=== PATIENT | female | born 1945 | race Caucasian/White ===

== ENCOUNTER 2017-01-30 13:44 | Outpatient (CLI) | payer MEDICARE ==
[2017-01-30 20:23] LABS: HEMOGLOBIN A1C 0.75 g/dL
== END 2017-01-30 13:45 | disposition home or self-care (01) ==
LOC: LAB.WCP 13:44
PROVIDERS: ATTEND Family Medicine
DX: E11.9 Type 2 diabetes mellitus without complications (principal); E01.0 Iodine-deficiency related diffuse (endemic) goiter
CPT/HCPCS: 36415; 83036; 84443

== ENCOUNTER 2017-04-14 23:40 | Emergency (ER) | payer MEDICARE ==
[2017-04-15] MEDS ORDERED: ALBUTEROL NEB 2.5 MG/3 ML INH STA (00:19)
[2017-04-15 00:26] LABS: BASOPHILS # (AUTO) 0.1 10^3/uL (0.0-0.1); BASOPHILS % (AUTO) 1.9 %; EOSINOPHILS # (AUTO) 0.5 10^3/uL (0.0-0.7); EOSINOPHILS % (AUTO) 6.3 %; HGB - HEMOGLOBIN 13.6 g/dL (12.0-16.0); MEAN CORPUSCULAR HEMOGLOBIN 31.7 pg (27.0-31.0); MEAN CORPUSCULAR VOLUME 93.2 fL (81.0-99.0); MEAN PLATELET VOLUME 7.6 fL (7.9-10.8); MONOCYTES # (AUTO) 0.7 10^3/uL (0.0-1.0); MONOCYTES % (AUTO) 8.7 %; NEUTROPHILS # (AUTO) 4.6 10^3/uL (1.5-6.6); NEUTROPHILS % (AUTO) 58.1 %; NUCLEATED RED BLOOD CELLS AUTO 0.1 /100WBC; RED BLOOD COUNT 4.29 10^6/uL (4.20-5.40); RED CELL DISTRIBUTION WIDTH 13.2 % (12.0-15.0)
[2017-04-15] MEDS ORDERED: ALBUTEROL NEB 2.5 MG/3 ML INH ONE ×2 (00:38→00:53)
[2017-04-15 00:41] LABS: ALBUMIN/GLOBULIN RATIO 1.2 (1.0-2.2); BILIRUBIN,TOTAL 0.4 mg/dL (0.2-1.0); CALCIUM 9.6 mg/dL (8.5-10.3); TOTAL PROTEIN 8.3 g/dL (6.7-8.2)
--- NOTE | 2017-04-15 01:28 | ED Physician Documentation ---
PD HPI DYSPNEA - Stated complaint Stated Complaint: SHORTNESS OF BREATH - Chief complaint Chief Complaint: Resp - History obtained from History obtained from: Patient, Family - History of Present Illness Timing - onset: Yesterday Timing - onset during: Rest, Light activity Timing - details: Gradual onset, Still present Inciting event(s): Exposure (ie smoke) Worsened by: Allergens, Smoke Associated symptoms: Cough, Chest pain / discomfort Similar symptoms before: No diagnosis Recently seen: Not recently seen - Additional information Additional information: Patient is a 72 year old female who is presenting to the emergency department for cough and chest tightness. patient states that over the last few days since there has been smoke in the air she has felt some chest pressure and short of breath. Review of Systems Constitutional: denies: Fever, Chills Eyes: denies: Decreased vision, Photophobia Ears: denies: Ear pain, Drainage/discharge Nose: denies: Congestion, Epistaxis Throat: denies: Sore throat Cardiac: denies: Palpitations, Pedal edema Respiratory: reports: Dyspnea, Cough, Wheezing GI: denies: Nausea, Vomiting : denies: Dysuria, Frequency Skin: denies: Rash, Lesions Musculoskeletal: denies: Neck pain, Back pain, Extremity pain Neurologic: denies: Generalized weakness, Focal weakness, Headache, Head injury Immunocompromised: denies: Immunocompromised PD PAST MEDICAL HISTORY - Past Medical History Past Medical History: Yes Cardiovascular: Hypertension Respiratory: None Neuro: Headache/migraine Endocrine/Autoimmune: Type 2 diabetes GI: Ulcers, Hiatal hernia, Colon polyps, Diverticulitis, Other : None Psych: Anxiety Musculoskeletal: Osteoarthritis, Chronic back pain Derm: Psoriasis - Past Surgical History Past Surgical History: Yes General: Cholecystectomy, Appendectomy, Hiatal hernia repair Ortho: Knee replacement, Spine surgery /[employer]: Hysterectomy HEENT: Tonsil/Adenoidectomy Derm: Skin cancer surgery - Present Medications Home Medications: Ambulatory Orders Medication Instructions Recorded Confirmed Alprazolam [Xanax] 0.5 mg BID PRN 06/22/14 04/15/17 Aspirin 81 mg DAILY 06/22/14 04/15/17 Cyclobenzaprine [Flexeril] 10 mg BID 06/22/14 04/15/17 Indomethacin [Indocin] 50 mg TID PRN 06/22/14 04/15/17 Insulin Glargine,Hum.rec.anlog 40 units BID 06/22/14 04/15/17 [Lantus Solostar] Levothyroxine [Synthroid] 125 mg DAILY 06/22/14 04/15/17 Lisinopril 40 mg DAILY 06/22/14 04/15/17 Simvastatin 20 mg DAILY 06/22/14 04/15/17 metFORMIN [Glucophage] 1,000 mg BID 06/22/14 04/15/17 traMADol [Ultram] 50 mg QID PRN 06/22/14 04/15/17 Hydrocodone/Acetaminophen 1 - 2 each PO Q6H PRN #20 tablet 09/20/15 04/15/17 [Hydrocodon-Acetaminophen 5-325] Ondansetron Odt [Zofran] 4 mg TL Q6H PRN #10 tablet 09/20/15 04/15/17 Albuterol Sulfate [Proventil Hfa 1 - 2 puffs INH Q4H PRN #1 inhaler 04/15/17 Inhaler] - Allergies Allergies/Adverse Reactions: Allergies Allergy/AdvReac Type Severity Reaction Status Date / Time hydromorphone [Hydromorphone] AdvReac Unknown Verified 04/14/17 23:59 iv contrast dye Allergy Rash Uncoded 04/15/17 00:00 - Social History Does the pt smoke?: No Smoking Status: Never smoker Does the pt drink ETOH?: No Does the pt have substance abuse?: No - Immunizations Immunizations are current?: Yes - POLST Patient has POLST: No PD ED PE NORMAL - Vitals Vital signs reviewed: Yes - General General: Alert and oriented X 3, No acute distress - HEENT HEENT: Atraumatic, PERRL, Moist mucous membranes, Pharynx benign - Neck Neck: Supple, no meningeal sign, No JVD - Cardiac Cardiac: RRR, No murmur - Respiratory Respiratory: No respiratory distress, Clear bilaterally - Abdomen Abdomen: Soft, Non tender, Non distended - Derm Derm: Normal color, No rash - Extremities Extremities: No deformity, No calf tenderness / cord - Neuro Neuro: Alert and oriented X 3, No motor deficit, No sensory deficit, Normal speech - Psych Psych: Normal mood, Normal affect Results - Vitals Vitals: Vital Signs - 24 hr 04/14/17 04/15/17 04/15/17 23:57 00:36 00:53 Temperature 36.8 C Heart Rate 92 87 92 Respiratory 19 18 15 Rate Blood Pressure 161/73 H 155/78 H O2 Saturation 96 97 04/15/17 01:11 Temperature Heart Rate 90 Respiratory 90 H Rate Blood Pressure 105/84 H O2 Saturation 95 Oxygen O2 Source Room air - EKG (time done) 0013 Rate: Rate (enter#) (86) Rhythm: NSR [place]: Normal Intervals: Normal VA QRS: Normal Ischemia: Normal ST segments Compare to prior EKG: Old EKG unavailable - Labs Labs: Laboratory Tests 04/15/17 04/15/17 04/15/17 00:09 00:09 00:09 WBC 8.0 RBC 4.29 Hgb 13.6 Hct 40.0 MCV 93.2 MCH 31.7 H MCHC 34.0 RDW 13.2 Plt Count 259 MPV 7.6 L Neut # 4.6 Lymph # 2.0 Nicholas # 0.7 Eos # 0.5 Baso # 0.1 Absolute Nucleated RBC 0.01 Nucleated RBCs 0.1 Sodium 138 Potassium 4.0 Chloride 99 L Carbon Dioxide 29 Anion Gap 10.0 BUN 18 Creatinine 1.0 Estimated GFR (MDRD) 55 L Glucose 219 H Calcium 9.6 Total Bilirubin 0.4 AST 25 ALT 24 Alkaline Phosphatase 45 Troponin I < 0.04 B-Natriuretic Peptide Total Protein 8.3 H Albumin 4.6 Globulin 3.7 Albumin/Globulin Ratio 1.2 Lipase 34 04/15/17 00:09 WBC RBC Hgb Hct MCV MCH MCHC RDW Plt Count MPV Neut # Lymph # Nicholas # Eos # Baso # Absolute Nucleated RBC Nucleated RBCs Sodium Potassium Chloride Carbon Dioxide Anion Gap BUN Creatinine Estimated GFR (MDRD) Glucose Calcium Total Bilirubin AST ALT Alkaline Phosphatase Troponin I B-Natriuretic Peptide 12 Total Protein Albumin Globulin Albumin/Globulin Ratio Lipase - Rads (name of study) chest x-ray Radiology: Final report received (no acute pathology), EMP read contemporaneously PD MEDICAL DECISION MAKING - ED course Complexity details: reviewed old records, reviewed results, re-evaluated patient , considered differential, d/w patient, d/w family ED course: Patient was seen and examined at bedside. ekg was performed and within normal limits. iv access was gained and labs were drawn. Patient was treated with 2 albuterol treatments. Patients diagnostics were within normal limits. Patient required no further work up and was stable for discharge with outpatient follow up. Departure - Departure Disposition: 01 Home, Self Care Clinical Impression: Reactive airway disease that is not asthma Condition: Good Instructions: ED Reactive Airway Disease Follow-Up: Maciel Hay MD [Primary Care Provider] - As Needed Prescriptions: Albuterol Sulfate [Proventil Hfa Inhaler] 1 - 2 puffs INH Q4H PRN #1 inhaler PRN Reason: Shortness Of Air/Wheezing Comments: Your diagnostics today were within normal limits. Your symptoms are likely secondary to the smoke in the air. You should try to avoid being outside or exertion outside if possible. You can use the inhaler ever 2-4 hours as needed if your symptoms persist. You should follow up with your pmd if your symptoms don't improve as the air quality improves. You may return to the emergency department at any time for new, worsening or uncontrollable symptoms.
--- NOTE | 2017-04-15 01:58 | XRAY Preliminary Report ---
Exam: XR Chest 1 View IMPRESSION: Normal single view chest. [facility] SITE ID: [id number]
--- NOTE | 2017-04-15 02:01 | XRAY Report ---
EXAM: CHEST RADIOGRAPHY EXAM DATE: 04/15/2017 12:49 AM. CLINICAL HISTORY: Cough, short of breath. COMPARISON: 06/22/2014 chest x-ray. TECHNIQUE: 1 view. FINDINGS: Lungs/Pleura: No focal opacities evident. No pleural effusion. No pneumothorax. Mediastinum: Within exam limitations, cardiomediastinal contour is normal. Other: None. IMPRESSION: Normal single view chest. [facility] Referring Provider Line: [phone] SITE ID: [id number]
[2017-04-15 02:11] VITALS: BP 120/68
== END 2017-04-15 02:11 | disposition home or self-care (01) ==
LOC: ED 23:40
DX: T59.811A Toxic effect of smoke, accidental (unintentional), initial encounter (principal); J68.3 Other acute and subacute respiratory conditions due to chemicals, gases, fumes and vapors; E11.9 Type 2 diabetes mellitus without complications; Z79.4 Long term (current) use of insulin; Z79.84 Long term (current) use of oral hypoglycemic drugs; I10 Essential (primary) hypertension; M19.90 Unspecified osteoarthritis, unspecified site; Z86.010 Personal history of colon polyps; Z87.11 Personal history of peptic ulcer disease; Z87.19 Personal history of other diseases of the digestive system; Z79.82 Long term (current) use of aspirin
CPT/HCPCS: 36415; 71010; 80053; 83690; 83880; 84484; 85025; 93005; 94640; 99283; 99284; J7613

== ENCOUNTER 2017-07-06 14:30 | Outpatient (CLI) | payer MEDICARE ==
[2017-07-06 19:44] LABS: ALBUMIN/GLOBULIN RATIO 1.2 (1.0-2.2); BILIRUBIN,TOTAL 0.5 mg/dL (0.2-1.0); BUN - BLOOD UREA NITROGEN 24 mg/dL (6-20); CARBON DIOXIDE - CO2 26 mmol/L (21-32); CHLORIDE 102 mmol/L (101-111); CHOL/HDL RATIO 2.6 (<4.4); CHOLESTEROL 114 mg/dL; CREATININE 0.9 mg/dL (0.4-1.0); GFR - MDRD 62 (>89); GLUCOSE 105 mg/dL (70-100); HDL CHOLESTEROL 44 mg/dL; SODIUM 138 mmol/L (135-145); TOTAL PROTEIN 8.2 g/dL (6.7-8.2); TRIGLYCERIDES 121 mg/dL; VLDL CHOLESTEROL 24 mg/dL
[2017-07-06 19:55] LABS: HEMOGLOBIN A1C 0.7 g/dL
== END 2017-07-06 14:31 | disposition home or self-care (01) ==
LOC: LAB.WCP 14:30
PROVIDERS: ATTEND Family Medicine
DX: M51.36 Other intervertebral disc degeneration, lumbar region (principal); E03.9 Hypothyroidism, unspecified; E11.9 Type 2 diabetes mellitus without complications; I10 Essential (primary) hypertension
CPT/HCPCS: 36415; 80053; 80061; 83036

== ENCOUNTER 2017-11-02 08:00 | Outpatient (CLI) | payer MEDICARE ==
[2017-11-02 19:59] LABS: HB2 TOTAL 14.4 g/dL; HEMOGLOBIN A1C 0.71 g/dL; HEMOGLOBIN A1C % 6.7 % (4.6-6.2)
[2017-11-02 20:26] LABS: CREATININE 0.7 mg/dL (0.4-1.0)
== END 2017-11-02 08:01 ==
LOC: LAB.WCP 08:00
PROVIDERS: ATTEND Family Medicine
DX: E11.9 Type 2 diabetes mellitus without complications (principal); I10 Essential (primary) hypertension; E78.5 Hyperlipidemia, unspecified; E87.1 Hypo-osmolality and hyponatremia; E03.9 Hypothyroidism, unspecified
CPT/HCPCS: 36415; 80048; 83036; 84443

== ENCOUNTER 2017-12-23 11:35 | Outpatient (CLI) | payer MEDICARE | END 2017-12-23 11:36 | disposition home or self-care (01) | LOC: DI 11:35 | PROVIDERS: ATTEND Family Medicine | DX: R06.00 Dyspnea, unspecified (principal); E11.9 Type 2 diabetes mellitus without complications; I10 Essential (primary) hypertension | CPT/HCPCS: 93306 ==

== ENCOUNTER 2018-09-01 14:55 | Outpatient (CLI) | payer MEDICARE ==
--- NOTE | 2018-09-02 10:15 | XRAY Report ---
Reason: HEADACHE Procedure Date: 09/01/2018 Accession Number: [id number] / [id number] Procedure: XRN - Skull Complete CPT Code: FULL RESULT: EXAM: SKULL RADIOGRAPHY EXAM DATE: 09/01/2018 03:15 PM. CLINICAL HISTORY: Headache. COMPARISON: None. TECHNIQUE: 2 views. FINDINGS: Bones: Normal. No fractures or bone lesions. Sinuses: Normal. No opacities or fluid levels. Other: Normal. No soft tissue swelling. IMPRESSION: Normal skull radiography. [facility]
== END 2018-09-01 14:56 | disposition home or self-care (01) ==
LOC: DI.N 14:55
PROVIDERS: ATTEND Family Medicine
DX: R51 Headache (principal)
CPT/HCPCS: 70260

== ENCOUNTER 2018-11-25 15:53 | Outpatient (CLI) | payer MEDICARE ==
--- NOTE | 2018-11-25 16:33 | XRAY Report ---
Reason: DYSPNEA ON EXERTION Procedure Date: 11/25/2018 Accession Number: [id number] / [id number] Procedure: WCP - Chest 2 View X-Ray CPT Code: 68341 FULL RESULT: EXAM: CHEST RADIOGRAPHY EXAM DATE: 11/25/2018 04:03 PM. CLINICAL HISTORY: DYSPNEA ON EXERTION. COMPARISON: CHEST 1 VIEW 04/15/2017 12:53 AM. TECHNIQUE: 2 views. FINDINGS: Lungs/Pleura: No focal opacities evident. No pleural effusion. No pneumothorax. Normal volumes. Mediastinum: Heart and mediastinal contours are unremarkable. Other: Status post multilevel lower cervical fusion. Partial visualization of upper lumbar fusion hardware. IMPRESSION: No acute cardiopulmonary abnormality. [facility]
== END 2018-11-25 15:54 | disposition home or self-care (01) ==
LOC: DI.WCP 15:53
PROVIDERS: ATTEND Family Medicine
DX: R06.09 Other forms of dyspnea (principal)
CPT/HCPCS: 71046

== ENCOUNTER 2018-12-03 13:24 | Outpatient (CLI) | payer MEDICARE | END 2018-12-03 13:25 | disposition home or self-care (01) | LOC: DI 13:24 | PROVIDERS: ATTEND Family Medicine | DX: R06.00 Dyspnea, unspecified (principal); I27.20 Pulmonary hypertension, unspecified | CPT/HCPCS: 93306 ==

== ENCOUNTER 2018-12-06 13:14 | Outpatient (CLI) | payer MEDICARE ==
[2018-12-06] MEDS ORDERED: ALBUTEROL NEB 2.5 MG/3 ML INH ONE ×2 (13:28→14:00)
== END 2018-12-06 13:15 | disposition home or self-care (01) ==
LOC: RT 13:14
PROVIDERS: ATTEND Family Medicine
DX: R06.09 Other forms of dyspnea (principal)
CPT/HCPCS: 94010; 94729

== ENCOUNTER 2018-12-23 13:52 | Outpatient (CLI) | payer MEDICARE ==
[~2018-12-23 13:52] MED LIST: IOVERSOL 320 100 ML VIAL IVP ONE
[2018-12-23 14:34] LABS: ALBUMIN 4.5 g/dL (3.2-5.5); ALBUMIN/GLOBULIN RATIO 1.2 (1.0-2.2); BILIRUBIN,TOTAL 0.7 mg/dL (0.2-1.0); CALCIUM 9.3 mg/dL (8.5-10.3); TOTAL PROTEIN 8.3 g/dL (6.7-8.2)
[2018-12-23] MEDS ORDERED: IOVERSOL 320 100 ML VIAL IVP ONE ×2 (17:44)
--- NOTE | 2018-12-24 11:41 | CT Report ---
Reason: DYSPNEA ON EXERTION Procedure Date: 12/23/2018 Accession Number: [id number] / [id number] Procedure: CT - CHEST W CPT Code: FULL RESULT: EXAM: CT CHEST EXAM DATE: 12/23/2018 03:13 PM. CLINICAL HISTORY: Dyspnea on exertion. COMPARISONS: ABDOMEN/PELVIS W/O 09/20/2015 5:44 PM. TECHNIQUE: Routine helical CT imaging was performed through the chest. IV contrast: Yes. Reconstructions: Coronal and sagittal. In accordance with CT protocol optimization, one or more of the following dose reduction techniques were utilized for this exam: automated exposure control, adjustment of mA and/or KV based on patient size, or use of iterative reconstructive technique. FINDINGS: Lungs/Pleura: No nodules, bronchial thickening, consolidation, or edema. Pulmonary vasculature is normal. No pericardial or pleural effusion. No pneumothorax. Mediastinum: Severe coronary calcifications. Heart and aorta otherwise appear unremarkable. No adenopathy. Bones: Previous cervical and lumbar surgeries. No acute or aggressive-appearing osseous abnormality seen. Moderate degenerative changes throughout the thoracic spine. Visualized Abdomen: Fatty liver, prior cholecystectomy. Other: None. IMPRESSION: 1. Severe coronary calcifications. 2. Lungs appear clear. 3. Fatty liver. [facility]
== END 2018-12-23 13:53 | disposition home or self-care (01) ==
LOC: LAB 13:52 → DI 13:53
PROVIDERS: ATTEND Family Medicine
DX: R06.00 Dyspnea, unspecified (principal); I10 Essential (primary) hypertension; I25.10 Atherosclerotic heart disease of native coronary artery without angina pectoris; K76.0 Fatty (change of) liver, not elsewhere classified
CPT/HCPCS: 36415; 71260; 80053; Q9967

== ENCOUNTER 2019-05-27 08:00 | Outpatient (CLI) | payer MEDICARE ==
[2019-05-27 19:01] LABS: CREATININE,URINE 46.5 mg/dL; MICROALBUMIN,URINE 7.3 mg/dL (0-300.0)
[2019-05-27 19:02] LABS: CALCIUM 8.9 mg/dL (8.5-10.3); CREATININE 0.9 mg/dL (0.4-1.0)
[2019-05-27 19:04] LABS: HEMOGLOBIN A1C 1.03 g/dL; HEMOGLOBIN A1C % 8.4 % (4.6-6.2)
== END 2019-05-27 23:59 | disposition home or self-care (01) ==
LOC: LAB.WCP 08:00
PROVIDERS: ATTEND Family Medicine
DX: E11.9 Type 2 diabetes mellitus without complications (principal); E03.9 Hypothyroidism, unspecified
CPT/HCPCS: 36415; 80048; 82043; 82570; 83036; 84443

== ENCOUNTER 2019-06-10 08:00 | Outpatient (CLI) | payer MEDICARE ==
[2019-06-10 20:13] LABS: BASOPHILS # (AUTO) 0.1 10^3/uL (0.0-0.1); EOSINOPHILS # (AUTO) 0.2 10^3/uL (0.0-0.7); EOSINOPHILS % (AUTO) 2.4 %; HGB - HEMOGLOBIN 11.6 g/dL (12.0-16.0); LYMPHOCYTES # (AUTO) 1.5 10^3/uL (1.5-3.5); LYMPHOCYTES % (AUTO) 18.4 %; MEAN CORPUSCULAR HEMOGLOBIN 31.4 pg (27.0-31.0); MEAN CORPUSCULAR HGB CONC 31.8 g/dL (32.0-36.0); MEAN CORPUSCULAR VOLUME 98.9 fL (81.0-99.0); MEAN PLATELET VOLUME 9.6 fL (7.9-10.8); MONOCYTES # (AUTO) 0.6 10^3/uL (0.0-1.0); MONOCYTES % (AUTO) 6.9 %; NEUTROPHILS # (AUTO) 5.9 10^3/uL (1.5-6.6); NEUTROPHILS % (AUTO) 70.7 %; PLT - PLATELET COUNT 319 10^3/uL (130-450); RED BLOOD COUNT 3.69 10^6/uL (4.20-5.40); RED CELL DISTRIBUTION WIDTH 12.6 % (12.0-15.0); WHITE BLOOD COUNT 8.4 x10^3/uL (4.8-10.8)
[2019-06-10 20:31] LABS: ALBUMIN 3.9 g/dL (3.2-5.5); ALBUMIN/GLOBULIN RATIO 1.1 (1.0-2.2); BILIRUBIN,TOTAL 0.7 mg/dL (0.2-1.0); CALCIUM 9.1 mg/dL (8.5-10.3); CREATININE 0.9 mg/dL (0.4-1.0); TOTAL PROTEIN 7.3 g/dL (6.7-8.2)
== END 2019-06-10 23:59 | disposition home or self-care (01) ==
LOC: LAB.WCP 08:00
PROVIDERS: ATTEND Physician Assistant
DX: N39.0 Urinary tract infection, site not specified (principal)
CPT/HCPCS: 36415; 80053; 85025

== ENCOUNTER 2019-06-24 12:59 | Outpatient (CLI) | payer MEDICARE ==
--- NOTE | 2019-06-25 16:26 | CT Report ---
Reason: URETERAL CALCULUS Procedure Date: 06/24/2019 Accession Number: [id number] / [id number] Procedure: CT - Abdomen/Pelvis WO CPT Code: Final Report FULL RESULT: EXAM: CT ABDOMEN AND PELVIS (CT KUB) EXAM DATE: 06/24/2019 01:08 PM. CLINICAL HISTORY: URETERAL CALCULUS. COMPARISONS: ABDOMEN/PELVIS W/O 09/20/2015 5:44 PM. TECHNIQUE: Routine axial helical CT imaging was performed through the abdomen and pelvis without IV contrast. Reconstructions: Coronal and sagittal. In accordance with CT protocol optimization, one or more of the following dose reduction techniques were utilized for this exam: automated exposure control, adjustment of mA and/or KV based on patient size, or use of iterative reconstructive technique. FINDINGS: Lung Bases: Unremarkable. Right Kidney/Ureter: No stones, hydronephrosis, or hydroureter. No perinephric fat stranding. Left Kidney/Ureter: No stones, hydronephrosis, or hydroureter. No perinephric fat stranding. Left ureteral stent extends from the renal pelvis to the bladder. No perinephric or periureteral fluid collections. Other Solid Organs: Noncontrast images of the solid organs are grossly unremarkable. Gallbladder/Bile Ducts: Cholecystectomy. Peritoneal Cavity: No free fluid, free air or grace adenopathy. Extensive colonic diverticulosis without evidence for acute diverticulitis. Pelvic Organs: No bladder stones or wall thickening. Status post hysterectomy. Vasculature: Moderate atherosclerotic calcifications of the abdominal aorta Other: Surgical fixation of the lumbosacral spine. IMPRESSION: 1. No urinary tract stones or obstruction. Left ureteral stent without evidence of perinephric or periureteral fluid collections. 2. Moderate stool throughout colon, constipation. [facility]
== END 2019-06-24 13:00 | disposition home or self-care (01) ==
LOC: DI 12:59
PROVIDERS: ATTEND Urology
DX: N20.1 Calculus of ureter (principal)
CPT/HCPCS: 74176

== ENCOUNTER 2019-06-27 08:20 | Outpatient (CLI) | payer MEDICARE ==
[2019-06-27 13:00] LABS: HGB - HEMOGLOBIN 12.3 g/dL (12.0-16.0); MEAN CORPUSCULAR HEMOGLOBIN 31.6 pg (27.0-31.0); MEAN CORPUSCULAR HGB CONC 32.2 g/dL (32.0-36.0); MEAN CORPUSCULAR VOLUME 98.2 fL (81.0-99.0); RED BLOOD COUNT 3.89 10^6/uL (4.20-5.40); WHITE BLOOD COUNT 6.4 x10^3/uL (4.8-10.8)
== END 2019-06-27 23:59 | disposition home or self-care (01) ==
LOC: LAB.WCP 08:20
PROVIDERS: ATTEND Physician Assistant
DX: G44.1 Vascular headache, not elsewhere classified (principal)
CPT/HCPCS: 36415; 85027; 85651; 86140

== ENCOUNTER 2019-07-08 10:59 | Outpatient (CLI) | payer MEDICARE ==
[2019-07-08 12:01] LABS: BASOPHILS # (AUTO) 0.1 10^3/uL (0.0-0.1); EOSINOPHILS # (AUTO) 0.4 10^3/uL (0.0-0.7); EOSINOPHILS % (AUTO) 5.8 %; HGB - HEMOGLOBIN 11.8 g/dL (12.0-16.0); LYMPHOCYTES % (AUTO) 30.1 %; MEAN CORPUSCULAR HEMOGLOBIN 31.3 pg (27.0-31.0); MEAN CORPUSCULAR HGB CONC 31.9 g/dL (32.0-36.0); MEAN CORPUSCULAR VOLUME 98.1 fL (81.0-99.0); MEAN PLATELET VOLUME 8.9 fL (7.9-10.8); MONOCYTES # (AUTO) 0.8 10^3/uL (0.0-1.0); MONOCYTES % (AUTO) 11.1 %; NEUTROPHILS # (AUTO) 3.5 10^3/uL (1.5-6.6); NEUTROPHILS % (AUTO) 51.7 %; PLT - PLATELET COUNT 250 10^3/uL (130-450); RED BLOOD COUNT 3.77 10^6/uL (4.20-5.40); RED CELL DISTRIBUTION WIDTH 13.2 % (12.0-15.0); WHITE BLOOD COUNT 6.8 x10^3/uL (4.8-10.8)
[2019-07-08 12:10] LABS: CALCIUM 8.9 mg/dL (8.5-10.3)
--- NOTE | 2019-07-08 14:27 | XRAY Report ---
Reason: CYSTOSCOPY,LT URETEROSCOPY Procedure Date: 07/08/2019 Accession Number: [id number] / [id number] Procedure: XR - Chest 2 View X-Ray CPT Code: 08255 Final Report FULL RESULT: EXAM: CHEST RADIOGRAPHY, 2 VIEWS EXAM DATE: 07/08/2019 11:30 AM. CLINICAL HISTORY: 78-year-old female with cystoscopy and left ureteroscopy. COMPARISON: CHEST 2 VIEW 11/25/2018 3:49 PM. CHEST W/ 12/23/2018 3:13 PM. CHEST 1 VIEW 04/15/2017 12:53 AM. CHEST 2 VIEW PA/LAT 06/22/2014 6:40 PM. TECHNIQUE: Upright PA and lateral views. FINDINGS: Lungs/Pleura: No focal opacities evident. No pleural effusion. No pneumothorax. Normal volumes. Mediastinum: Heart size normal, without adenopathy or pulmonary vascular congestion. Other: Postsurgical changes lower cervical spine and mid lumbar spine, as previously. No acute process or metastatic disease. IMPRESSION: Stable chest. No pneumonia, CHF or other demonstrated cause for the patient's symptoms. [facility]
== END 2019-07-08 11:00 | disposition home or self-care (01) ==
LOC: DI 10:59
PROVIDERS: ATTEND Urology
DX: Z01.818 Encounter for other preprocedural examination (principal); N20.1 Calculus of ureter; N13.30 Unspecified hydronephrosis
CPT/HCPCS: 36415; 71046; 80048; 85025; 93005

== ENCOUNTER 2019-07-11 11:12 | Day surgery (SDC) | payer MEDICARE ==
[~2019-07-11 11:12] MED LIST changes: +IOTHALAMATE MEGLUMINE 50 ML VIAL ONE; -IOVERSOL 320 100 ML VIAL IVP ONE; +LIDOCAINE 2% URO-JET 5 ML SYRINGE UR ONE
[2019-07-11] MEDS ORDERED: MIDAZOLAM 2 MG/2 ML VIAL IVP ONE (11:13)
[2019-07-11] MEDS ORDERED: fentaNYL 100 MCG/2 ML VIAL IVP ONE (11:13)
[2019-07-11] MEDS ORDERED: PROPOFOL 200 MG/20 ML VIAL IVP ONE (11:13)
[2019-07-11] MEDS ORDERED: ROCURONIUM 50 MG/5 ML VIAL IVP ONE (11:13)
[2019-07-11] MEDS ORDERED: PHENYLEPHRINE 10 MG/ML VIAL IV ONE (11:13)
[2019-07-11] MEDS ORDERED: cefTRIAXone 2 GM VIAL ONE (11:23)
[2019-07-11] MEDS ORDERED: LACTATED RINGERS 1,000 ML IV ONE ×3 (11:26→16:28)
--- NOTE | 2019-07-11 12:37 | ANESTHESIA ---
Pre-Anesthesia VS, & Labs - Diagnosis left ureteral stone, left hydronephrosis - Procedure cystoscopy, left ureteroscopy, laser lithotripsy, left stent removal, left stent placement Vital Signs: Temp Pulse Resp BP Pulse Ox 36.7 C 103 H 14 173/78 H 93 07/11/19 11:26 12 11:26 07/11/19 11:26 07/11/19 11:26 07/11/19 11:26 Height 5 ft 8 in Weight (kg) 130.9 kg Body Mass Index 39.1 - NPO >8 hours - Is Patient ?: No - Lab Results Current Lab Results: Laboratory Tests 07/11/19 12:25: POC Whole Bld Glucose 179 H Home Medications and Allergies Home Medications: Ambulatory Orders Atorvastatin Calcium 40 mg PO DAILY 07/06/19 Ciprofloxacin HCl [Cipro] 500 mg PO BID 07/11/19 Tamsulosin HCl [Flomax] 0.4 mg PO DAILY 07/11/19 Alprazolam [Xanax] 0.5 mg BID PRN 06/22/14 Aspirin 81 mg DAILY 06/22/14 Cyclobenzaprine [Flexeril] 10 mg PO BID 06/22/14 Indomethacin [Indocin] 50 mg TID PRN 06/22/14 Insulin Glargine,Hum.rec.anlog [Lantus Solostar] 30 units TID 06/22/14 Levothyroxine [Synthroid] 125 mg PO DAILY 06/22/14 Lisinopril 40 mg PO DAILY 06/22/14 metFORMIN [Glucophage] 1,000 mg BID 06/22/14 traMADol [Ultram] 50 mg QID PRN 06/22/14 Atorvastatin Calcium 40 mg PO DAILY 07/06/19 Ciprofloxacin HCl [Cipro] 500 mg PO BID 07/11/19 Tamsulosin HCl [Flomax] 0.4 mg PO DAILY 07/11/19 Allergies/Adverse Reactions: Allergies Allergy/AdvReac Type Severity Reaction Status Date / Time Iodinated Contrast Media Allergy Mild Rash Verified 07/11/19 11:57 hydromorphone [Hydromorphone] AdvReac Unknown Verified 04/14/17 23:59 Anes History & Medical History - Anesthetic History Anesthesia Complications: reports: No previous complications - Medical History Cardiovascular: reports: None Pulmonary: reports: Shortness of breath Gastrointestinal: reports: Ulcers, Chronic diarrhea, Chronic constipation Urinary: reports: Chronic bladder infection, Kidney stones Neuro: reports: None Musculoskeletal: reports: Osteoarthritis, Chronic back pain Endocrine/Autoimmune: reports: Type 2 diabetes, HyPOthyroidism Blood Disorders: reports: None Smoking Status: Former smoker (quit 18 years ago) Psychosocial: reports: No issues indicated - Surgical History General: Cholecystectomy, Appendectomy, Hiatal hernia repair Eyes Ears Nose Throat (EENT): Tonsil/Adenoidectomy Gynecologic: Hysterectomy Orthopedic: Knee replacement, Spine surgery Dermatologic: Skin cancer surgery Results - EKG Results EKG Comparison: Reviewed EKG - Echo Results Echo Results: Report reviewed Exam General: Alert, Oriented x3, Cooperative, No acute distress Dental: WNL Mouth Openin Fingerbreadth Neck Mobility: Reduced (s/p acdf) Mallampati classification: II Thyromental Distance: 4-6 cm Respiratory: Decreased breath sounds, Wheezing (expiratory wheezing) Cardiovascular: Regular rate, Normal S1, Normal S2 Mental/Cognitive Status: Alert/Oriented X3, Normal for patient Plan Anesthesia Type: General Consent for Procedure(s) Verified and Reviewed: Yes Code Status: Attempt Resuscitation ASA classification: 3-Severe systemic disease Is this case an emergency?: No
[2019-07-11] MEDS ORDERED: IPRATROPIUM/ALBUTEROL 3 ML NEB INH PRN (12:45)
[2019-07-11] MEDS ORDERED: SUGAMMADEX 200 MG/2 ML VIAL IVP ONE (14:56)
[2019-07-11] MEDS ORDERED: IOTHALAMATE MEGLUMINE 50 ML VIAL INTRADUCT ONE ×2 (15:54)
--- NOTE | 2019-07-11 16:36 | IMMEDIATE POSTOPERATIVE NOTE ---
Immediate Postoperative Note - Procedure Note Procedure Date: 07/11/19 Pre-Op Diagnosis: L ureteral calculus Procedure: see below Post-Op Diagnosis: L ureteral calculus Primary Surgeon: Rayo Pablo MD Dough Machine Operator: None Anesthesia Type: Other (General) Findings: Procedure: Cystoscopy, L ureteroscopy, basket extraction of L ureteral calculus, L retrograde pyelogram, L ureteral stent removal, and L ureteral stent placement Findings: Cystoscopy revealed no bladder tumors or calculi, B/L ureteral orifices in normal position, and distal end of L ureteral stent seen emerging from L ureteral orifice. Old L ureteral stent was removed. L semi-rigid ureteroscopy revealed no calculi in L distal or L mid ureter and an approx. 5- 6mm calculus in L proximal ureter. Basket extraction of calculus was attempted but was unable to be performed. L flexible ureteroscopy revealed the L proximal ureteral calculus. Basket extraction of L ureteral calculus was able to be performed. L retrograde pyelogram revealed no L hydronephrosis. New L ureteral stent was placed. Complications: No complications Estimated Blood Loss (in cc): 2 Specimens and Cultures: Specimens: L ureteral calculus sent to lab for stone analysis Drains: 28cm x 6F L ureteral JJ stent (no string) Plan of Care: Patient to be discharged home when stable and to return to see me in the office in 1 week for cystoscopy, stent removal, and post-op visit.
[2019-07-11] MEDS ORDERED: ONDANSETRON 4 MG/2 ML VIAL IVP PRN (16:53)
[2019-07-11] MEDS ORDERED: HYDROcod/ACETAM 10 MG/325 MG TABLET PO PRN (16:53)
[2019-07-11 17:03] VITALS: BP 162/62
--- NOTE | 2019-07-15 06:12 | XRAY Report ---
Reason: STENT PLACEMENT Procedure Date: 07/11/2019 Accession Number: [id number] / [id number] Procedure: FL - OR C-Arm Procedure CPT Code: Final Report FULL RESULT: EXAM: FLUOROSCOPIC GUIDANCE EXAM DATE: 07/11/2019 04:45 PM. CLINICAL HISTORY: STENT PLACEMENT. COMPARISON: None. FINDINGS: Intraoperative matrix images demonstrate placement of a left ureteral stent. IMPRESSION: Fluoroscopic guidance provided for left ureteral stent placement. Total fluoroscopy time: 0.4 minutes. Number of images: 5. ETHAN
== END 2019-07-11 11:13 | disposition home or self-care (01) ==
LOC: SDS 11:12
PROVIDERS: ATTEND Urology
PROC: 0TC78ZZ Extirpation of Matter from Left Ureter, Via Natural or Artificial Opening Endoscopic (ICD-10-PCS; principal; 2019-07-11 13:00)
PROC: 0T9780Z Drainage of Left Ureter with Drainage Device, Via Natural or Artificial Opening Endoscopic (ICD-10-PCS; 2019-07-11 13:00)
DX: N20.1 Calculus of ureter (principal); E11.9 Type 2 diabetes mellitus without complications; E03.9 Hypothyroidism, unspecified; I10 Essential (primary) hypertension; G47.30 Sleep apnea, unspecified; E66.9 Obesity, unspecified; Z68.39 Body mass index [BMI] 39.0-39.9, adult; E78.5 Hyperlipidemia, unspecified; G89.29 Other chronic pain; M54.9 Dorsalgia, unspecified; Z79.4 Long term (current) use of insulin; Z79.891 Long term (current) use of opiate analgesic; Z79.82 Long term (current) use of aspirin; Z87.440 Personal history of urinary (tract) infections; Z87.891 Personal history of nicotine dependence; Z85.828 Personal history of other malignant neoplasm of skin; Z96.659 Presence of unspecified artificial knee joint
CPT/HCPCS: 52332; 52352; 94640; C1758; J7120; Q9961

== ENCOUNTER 2019-08-17 07:00 | Outpatient (CLI) | payer MEDICARE ==
[2019-08-17 18:26] LABS: HB2 TOTAL 13.6 g/dL; HEMOGLOBIN A1C 0.91 g/dL; HEMOGLOBIN A1C % 8.3 % (4.6-6.2)
[2019-08-17 18:28] LABS: ALBUMIN 4.2 g/dL (3.2-5.5); ALBUMIN/GLOBULIN RATIO 1.2 (1.0-2.2); BILIRUBIN,TOTAL 0.7 mg/dL (0.2-1.0); CALCIUM 9.4 mg/dL (8.5-10.3); CREATININE 0.9 mg/dL (0.4-1.0); TOTAL PROTEIN 7.7 g/dL (6.7-8.2)
== END 2019-08-17 23:59 | disposition home or self-care (01) ==
LOC: LAB.WCP 07:00
PROVIDERS: ATTEND Physician Assistant
DX: E11.9 Type 2 diabetes mellitus without complications (principal); N20.0 Calculus of kidney; E03.9 Hypothyroidism, unspecified
CPT/HCPCS: 36415; 80053; 83036; 84443; 85025

== ENCOUNTER 2020-06-13 08:00 | Outpatient (CLI) | payer MEDICARE ==
[2020-06-13 18:35] LABS: BASOPHILS # (AUTO) 0.1 10^3/uL (0.0-0.1); BASOPHILS % (AUTO) 1.6 %; EOSINOPHILS # (AUTO) 0.3 10^3/uL (0.0-0.7); EOSINOPHILS % (AUTO) 3.9 %; HGB - HEMOGLOBIN 12.8 g/dL (12.0-16.0); MEAN CORPUSCULAR HGB CONC 32.1 g/dL (32.0-36.0); MEAN CORPUSCULAR VOLUME 99.8 fL (81.0-99.0); MEAN PLATELET VOLUME 10.2 fL (7.9-10.8); MONOCYTES # (AUTO) 0.6 10^3/uL (0.0-1.0); MONOCYTES % (AUTO) 9.4 %; NEUTROPHILS # (AUTO) 3.8 10^3/uL (1.5-6.6); NEUTROPHILS % (AUTO) 55.7 %; PLT - PLATELET COUNT 276 10^3/uL (130-450); RED CELL DISTRIBUTION WIDTH 12.7 % (12.0-15.0); WHITE BLOOD COUNT 6.7 x10^3/uL (4.8-10.8)
[2020-06-13 18:59] LABS: ALBUMIN 4.3 g/dL (3.2-5.5); ALBUMIN/GLOBULIN RATIO 1.2 (1.0-2.2); ALKALINE PHOSPHATASE 48 IU/L (42-121); ALT ALANINE AMINOTRANSFERASE 31 IU/L (10-60); AST ASPARTATE AMINOTRANSFERASE 25 IU/L (10-42); BILIRUBIN,TOTAL 0.8 mg/dL (0.2-1.0); BUN - BLOOD UREA NITROGEN 30 mg/dL (6-20); CALCIUM 9.2 mg/dL (8.5-10.3); CARBON DIOXIDE - CO2 30 mmol/L (21-32); CHLORIDE 102 mmol/L (101-111); CHOL/HDL RATIO 2.4 (<4.4); CHOLESTEROL 103 mg/dL; GLUCOSE 116 mg/dL (70-100); HDL CHOLESTEROL 43 mg/dL; LDL CHOLESTEROL,CALCULATED 48 mg/dL; LDL/HDL RATIO 1.1 (<4.4); SODIUM 141 mmol/L (135-145); TOTAL PROTEIN 7.8 g/dL (6.7-8.2); VLDL CHOLESTEROL 12 mg/dL
== END 2020-06-13 23:59 | disposition home or self-care (01) ==
LOC: LAB.WCP 08:00
PROVIDERS: ATTEND Physician Assistant
DX: E03.9 Hypothyroidism, unspecified (principal); E11.9 Type 2 diabetes mellitus without complications; I10 Essential (primary) hypertension; E78.5 Hyperlipidemia, unspecified
CPT/HCPCS: 36415; 80053; 80061; 83036; 83721; 84443; 85025

== ENCOUNTER 2020-10-08 08:00 | Outpatient (CLI) | payer MEDICARE ==
[2020-10-08 12:41] LABS: CREATININE,URINE 70.9 mg/dL; MICROALBUM/CREATININE RATIO,UR 11.3 ug/mg (<30.0); MICROALBUMIN,URINE 0.8 mg/dL (0-300.0)
[2020-10-08 12:48] LABS: ESTIMATED AVERAGE GLUCOSE 166 mg/dL (70-100); HEMOGLOBIN A1c% 7.4 % (4.27-6.07)
[2020-10-08 13:01] LABS: CALCIUM 9.1 mg/dL (8.5-10.3); CREATININE 1.1 mg/dL (0.4-1.0); POTASSIUM 4.5 mmol/L (3.5-5.0)
[2020-10-08 13:03] LABS: THYROID STIMULATING HORMONE 1.7 uIU/mL (0.34-5.60)
== END 2020-10-08 23:59 | disposition home or self-care (01) ==
LOC: LAB.WCP 08:00
PROVIDERS: ATTEND Physician Assistant Medical
DX: E11.9 Type 2 diabetes mellitus without complications (principal); D64.9 Anemia, unspecified; E03.9 Hypothyroidism, unspecified
CPT/HCPCS: 36415; 80048; 82043; 82570; 82607; 82728; 83036; 83540; 84443; 84466

== ENCOUNTER 2020-10-25 15:07 | Outpatient (CLI) | payer MEDICARE ==
--- NOTE | 2020-10-25 16:45 | DEXA Report ---
PROCEDURE: Dexa Spine and/or Hip INDICATIONS: POST MENOPAUSAL TECHNIQUE: Dual energy x-ray absorptiometry (DXA) was performed on a [employer] System. Regions measur ed are the AP Spine, femoral neck, and if needed forearm. COMPARISON: None. FINDINGS: Lumbar Spine: Bone Mineral Density 1.570 g/cm/cm,T score 3.2, normal Left Hip: Bone Mineral Density 0.988 g/cm/cm,T score -0.2, normal Left Femoral Neck: Bone Mineral Density 1.010 g/cm/cm, T score -0.2, normal Left forearm: Bone Mineral Density 0.679 g/cm/cm, T score 0.1, normal (T score greater or equal to -1.0: NORMAL) (T score from -1.1 to -2.4: OSTEOPENIA) (T score less than or equal to -2.5 to: OSTEOPOROSIS) Impression: Normal bone mineral density. Patients with diagnosis of osteoporosis or osteopenia should have regular bone mineral density assess ment. For those eligible for Medicare, routine testing is allowed once every 2 years. Testing frequ ency can be increased for patients who have rapidly progressing disease or for those who are receivin g medical therapy to restore bone mass. Reviewed by: Natacha Fu MD on 10/25/2020 4:43 PM PDT Approved by: Natacha Fu MD on 10/25/2020 4:43 PM PDT Station ID: [id number]
== END 2020-10-25 15:08 | disposition home or self-care (01) ==
LOC: DI 15:07
PROVIDERS: ATTEND Physician Assistant Medical
DX: Z78.0 Asymptomatic menopausal state (principal)

== ENCOUNTER 2020-12-18 10:22 | Outpatient (CLI) | payer MEDICARE ==
--- NOTE | 2020-12-20 08:30 | Mammography Report ---
BILATERAL DIGITAL DIAGNOSTIC MAMMOGRAM 3D/2D: 12/18/2020 CLINICAL: Focal right breast pain. Comparison is made to exams dated: 08/31/2018 mammogram - [facility], 05/13/2016 mammogram, 2014 mammogram, 09/20/[address] mamm[address] - [facility], 07/21/2011 mammogram, and 3 mammogram - [facility]. There are scattered fibroglandular elements in both [place] sts. No significant masses, calcifications, or other findings are seen in either breast. IMPRESSION: INCOMPLETE: NEEDS ADDITIONAL IMAGING EVALUATION There is no abnormality seen in the right breast to correspond with the pain at 8 o'clock, however, u ltrasound is recommended. Ultrasound will be performed immediately following the current exam. This exam was interpreted at Station ID: [id number]. NOTE: For mammograms, a report in lay terms will be sent to the patient. Approximately 15% of breast malignancies will not be visualized mammographically. In the management of a palpable breast mass, a negative mammogram must not discourage biopsy of a clinically suspicious lesion. Electronically Signed By: Johnny Brewer M.D. ddp/:12/18/2020 12:20:35 copy to: Shruthi Fenton ACR BI-RADS Category 0: Incomplete 3340F PARENCHYMAL PATTERN: (A) - The breast(s) demonstrate(s) scattered fibroglandular densities. BI-RADS CATEGORY: (0) - 0 Ultrasound [id number] Immediate follow-up LATERALITY: (B)
--- NOTE | 2020-12-20 08:30 | Ultrasound Report ---
LIMITED ULTRASOUND OF RIGHT BREAST: 12/18/2020 CLINICAL: Focal right breast pain. Comparison is made to exams dated: 12/18/2020 mammogram - [facility], 08/31/2018 [facility] [place], 05/13/2016 mammogram, 09/28/2014 mammogram, 09/20/2013 mammogram - [facility], and 08/16/2012 mammogram - [facility]. Ultrasound of the right breast 8 o'clock region was performed on the area of interest. Maurice scale im ages of the real-time examination were reviewed. No discrete cystic or solid mass lesion identified in the area of focal pain. IMPRESSION: NEGATIVE There is no sonographic evidence of malignancy. There is no abnormality seen in the right breast to correspond with the pain at 8 o'clock, however, c linical followup is recommended. A 1 year screening mammogram is recommended. This exam was interpreted at Station ID: [id number]. Electronically Signed By: Johnny Brewer M.D. ddp/:12/18/2020 12:20:01 copy to: Shruthi Fenton Ultrasound BI-RADS: 1 Negative BI-RADS CATEGORY: (1) - 1 RECOMMENDATION: (ANNUAL) - Recommend routine annual screening mammography. [id number] 1 year screening LATERALITY: (B)
== END 2020-12-18 10:23 | disposition home or self-care (01) ==
LOC: DI 10:22
PROVIDERS: ATTEND Physician Assistant Medical
DX: R92.8 Other abnormal and inconclusive findings on diagnostic imaging of breast (principal)

== ENCOUNTER 2021-01-01 08:00 | Outpatient (CLI) | payer MEDICARE ==
[2021-01-01 12:15] LABS: BASOPHILS # (AUTO) 0.1 10^3/uL (0.0-0.1); EOSINOPHILS # (AUTO) 0.4 10^3/uL (0.0-0.7); EOSINOPHILS % (AUTO) 5.6 %; HCT - HEMATOCRIT 43.2 % (37.0-47.0); HGB - HEMOGLOBIN 13.6 g/dL (12.0-16.0); LYMPHOCYTES # (AUTO) 1.5 10^3/uL (1.5-3.5); LYMPHOCYTES % (AUTO) 19.1 %; MEAN CORPUSCULAR HGB CONC 31.5 g/dL (32.0-36.0); MEAN CORPUSCULAR VOLUME 98.4 fL (81.0-99.0); MEAN PLATELET VOLUME 10.3 fL (7.9-10.8); MONOCYTES # (AUTO) 0.6 10^3/uL (0.0-1.0); NEUTROPHILS # (AUTO) 5.3 10^3/uL (1.5-6.6); PLT - PLATELET COUNT 269 10^3/uL (130-450); RED BLOOD COUNT 4.39 10^6/uL (4.20-5.40); WHITE BLOOD COUNT 7.9 x10^3/uL (4.8-10.8)
[2021-01-01 12:36] LABS: ALBUMIN 4.4 g/dL (3.2-5.5); ALBUMIN/GLOBULIN RATIO 1.3 (1.0-2.2); ALKALINE PHOSPHATASE 53 IU/L (42-121); ALT ALANINE AMINOTRANSFERASE 30 IU/L (10-60); AST ASPARTATE AMINOTRANSFERASE 26 IU/L (10-42); BILIRUBIN,TOTAL 0.7 mg/dL (0.2-1.0); BUN - BLOOD UREA NITROGEN 37 mg/dL (6-20); CARBON DIOXIDE - CO2 25 mmol/L (21-32); CHLORIDE 103 mmol/L (101-111); CHOL/HDL RATIO 2.6 (<4.4); CHOLESTEROL 100 mg/dL; CREATININE 1.3 mg/dL (0.4-1.0); GFR - MDRD 40 (>89); GLUCOSE 179 mg/dL (70-100); HDL CHOLESTEROL 38 mg/dL; LDL CHOLESTEROL,CALCULATED 47 mg/dL; LDL/HDL RATIO 1.2 (<4.4); POTASSIUM 4.1 mmol/L (3.5-5.0); SODIUM 140 mmol/L (135-145); TOTAL PROTEIN 7.7 g/dL (6.7-8.2); TRIGLYCERIDES 73 mg/dL; VLDL CHOLESTEROL 15 mg/dL
[2021-01-01 12:43] LABS: THYROID STIMULATING HORMONE 1.35 uIU/mL (0.34-5.60)
[2021-01-01 13:15] LABS: ESTIMATED AVERAGE GLUCOSE 180 mg/dL (70-100); HEMOGLOBIN A1c% 7.9 % (4.27-6.07)
== END 2021-01-01 23:59 | disposition home or self-care (01) ==
LOC: LAB.WCP 08:00
PROVIDERS: ATTEND Physician Assistant Medical
DX: E11.9 Type 2 diabetes mellitus without complications (principal); E03.9 Hypothyroidism, unspecified
CPT/HCPCS: 36415; 80053; 80061; 83036; 83721; 84443; 85025

== ENCOUNTER 2021-04-04 08:00 | Outpatient (CLI) | payer MEDICARE ==
[2021-04-04 18:24] LABS: CALCIUM 9.1 mg/dL (8.5-10.3); CREATININE 1.2 mg/dL (0.4-1.0); POTASSIUM 4.2 mmol/L (3.5-5.0)
[2021-04-04 20:42] LABS: ESTIMATED AVERAGE GLUCOSE 183 mg/dL (70-100)
== END 2021-04-04 23:59 | disposition home or self-care (01) ==
LOC: LAB.WCP 08:00
PROVIDERS: ATTEND Physician Assistant Medical
DX: E11.9 Type 2 diabetes mellitus without complications (principal)
CPT/HCPCS: 36415; 80048; 83036

== ENCOUNTER 2021-04-10 16:15 | Outpatient (CLI) | payer MEDICARE | END 2021-04-10 23:59 | disposition home or self-care (01) | LOC: LAB.WCP 16:15 | PROVIDERS: ATTEND Physician Assistant Medical | DX: N39.0 Urinary tract infection, site not specified (principal) | CPT/HCPCS: 87077; 87086; 87181 ==

== ENCOUNTER 2021-07-02 09:04 | Outpatient (CLI) | payer MEDICARE ==
[2021-07-02 12:40] LABS: ESTIMATED AVERAGE GLUCOSE 177 mg/dL (70-100); HEMOGLOBIN A1c% 7.8 % (4.27-6.07)
[2021-07-02 12:50] LABS: BILIRUBIN,URINE NEGATIVE (NEGATIVE); GLUCOSE, URINE (UA) >=1000 mg/dL (NEGATIVE); KETONES,URINE (UA) NEGATIVE (NEGATIVE); LEUKOCYTE ESTERASE, URINE NEGATIVE (NEGATIVE); NITRITE,URINE NEGATIVE (NEGATIVE); OCCULT BLOOD,URINE NEGATIVE (NEGATIVE); PROTEIN,URINE NEGATIVE (NEGATIVE); UROBILINOGEN,URINE 0.2 (NORMAL) E.U./dL (NORMAL)
[2021-07-02 12:57] LABS: CLARITY,URINE CLEAR (CLEAR)
[2021-07-02 13:10] LABS: ALBUMIN 4.4 g/dL (3.2-5.5); ALBUMIN/GLOBULIN RATIO 1.3 (1.0-2.2); ALKALINE PHOSPHATASE 74 IU/L (42-121); ALT ALANINE AMINOTRANSFERASE 57 IU/L (10-60); AST ASPARTATE AMINOTRANSFERASE 42 IU/L (10-42); BILIRUBIN,TOTAL 0.7 mg/dL (0.2-1.0); BUN - BLOOD UREA NITROGEN 19 mg/dL (6-20); CALCIUM 9.4 mg/dL (8.5-10.3); CARBON DIOXIDE - CO2 30 mmol/L (21-32); CHLORIDE 100 mmol/L (101-111); CHOL/HDL RATIO 2.3 (<4.4); CHOLESTEROL 107 mg/dL; GFR - MDRD 54 (>89); GLUCOSE 101 mg/dL (70-100); HDL CHOLESTEROL 46 mg/dL; LDL CHOLESTEROL,CALCULATED 46 mg/dL; POTASSIUM 4.2 mmol/L (3.5-5.0); SODIUM 140 mmol/L (135-145); TOTAL PROTEIN 7.8 g/dL (6.7-8.2); TRIGLYCERIDES 75 mg/dL; VLDL CHOLESTEROL 15 mg/dL
[2021-07-02 13:11] LABS: THYROID STIMULATING HORMONE 3.09 uIU/mL (0.34-5.60)
[2021-07-02 13:17] LABS: BACTERIA,URINE Rare /HPF (None Seen); RBC,URINE 0-5 /HPF (0-5); SQUAMOUS EPITHELIAL CELL,UR FEW Squamous (<= Few); WBC,URINE 0-3 /HPF (0-5)
== END 2021-07-02 23:59 | disposition home or self-care (01) ==
LOC: LAB.WCP 09:04
PROVIDERS: ATTEND Physician Assistant Medical
DX: E11.9 Type 2 diabetes mellitus without complications (principal); N39.0 Urinary tract infection, site not specified; E03.9 Hypothyroidism, unspecified
CPT/HCPCS: 36415; 80053; 80061; 81001; 83036; 83721; 84443; 87086

== ENCOUNTER 2021-10-04 10:33 | Outpatient (CLI) | payer MEDICARE ==
[2021-10-04 18:17] LABS: ESTIMATED AVERAGE GLUCOSE 183 mg/dL (70-100)
[2021-10-04 18:18] LABS: CALCIUM 8.8 mg/dL (8.5-10.3); CREATININE 1.2 mg/dL (0.4-1.0); POTASSIUM 4.8 mmol/L (3.5-5.0)
== END 2021-10-04 10:34 | disposition home or self-care (01) ==
LOC: LAB.N 10:33
PROVIDERS: ATTEND Physician Assistant Medical
DX: E11.9 Type 2 diabetes mellitus without complications (principal)
CPT/HCPCS: 36415; 80048; 83036

== ENCOUNTER 2021-10-10 13:35 | Outpatient (CLI) | payer MEDICARE ==
--- NOTE | 2021-10-10 14:39 | CT Report ---
PROCEDURE: Abdomen/Pelvis WO INDICATIONS: LEFT LOWER QUAD ABD PAIN TECHNIQUE: Noncontrast 5 mm thick sections acquired from the diaphragms to the symphysis. 5 mm coronal and sagi ttal reformats were then performed. For radiation dose reduction, the following was used: automated exposure control, adjustment of mA and/or kV according to patient size. COMPARISON: 06/22/2019, 09/20/2015. FINDINGS: Image quality: Excellent. ABDOMEN: Lung bases: Lung bases are clear. Heart size is normal. Solid organs: Liver and spleen are normal in size. Gallbladder is surgically absent Pancreas is no rmal in contours. No adrenal nodules. Kidneys are normal in size, without hydronephrosis or nephrol ithiasis. Peritoneum and bowel: Unenhanced bowel loops demonstrate normal wall thickness and caliber. No free fluid or air. Mild fecal stasis in the colon is again seen not significantly changed from prior km dy. Sigmoid diverticulosis is seen, no sigmoid colon wall thickening or pericolonic fat stranding is noted. No abscess collection. Nodes and vessels: No retroperitoneal or mesenteric adenopathy by size criteria. Aorta and inferior vena cava are normal in caliber. Mild to moderate atherosclerotic calcifications in the abdominal a mark and bilateral iliac arteries are seen. Miscellaneous: No ventral hernias. PELVIS: Genitourinary: Bladder wall thickness is normal. Miscellaneous: No inguinal hernias or adenopathy. Bones: No suspicious bony lesions. Post fusion changes are again seen in lumbar spine at L2-L5 leve ls. Degenerative endplate changes are noted throughout lower thoracic spine and upper lumbar spine. N o vertebral body compression fractures. Osteoarthritic changes are seen in the bony pelvis. IMPRESSION: 1. No acute inflammatory process is seen in abdomen or pelvis. Sigmoid diverticulosis without evidenc e of acute diverticulitis. Mild to moderate constipation. No abscess collection. No free fluid or sandi e air. 2. Extensive post surgical changes in lumbar spine with beam hardening artifacts. No suspicious intra osseous lesion or acute vertebral body compression fracture. Reviewed by: Surjit Titus MD on 10/10/2021 2:38 PM PST Approved by: Surjit Titus MD on 10/10/2021 2:38 PM PST Station ID: [id number]
== END 2021-10-10 13:36 | disposition home or self-care (01) ==
LOC: DI 13:35
PROVIDERS: ATTEND Physician Assistant Medical
DX: R10.32 Left lower quadrant pain (principal); K57.30 Diverticulosis of large intestine without perforation or abscess without bleeding; K59.00 Constipation, unspecified

== ENCOUNTER 2022-01-02 09:01 | Outpatient (CLI) | payer MEDICARE ==
[2022-01-02 12:34] LABS: ALBUMIN 4.2 g/dL (3.2-5.5); ALBUMIN/GLOBULIN RATIO 1.2 (1.0-2.2); ALKALINE PHOSPHATASE 51 IU/L (42-121); ALT ALANINE AMINOTRANSFERASE 25 IU/L (10-60); AST ASPARTATE AMINOTRANSFERASE 22 IU/L (10-42); BILIRUBIN,TOTAL 0.7 mg/dL (0.2-1.0); BUN - BLOOD UREA NITROGEN 35 mg/dL (6-20); CALCIUM 9.2 mg/dL (8.5-10.3); CARBON DIOXIDE - CO2 24 mmol/L (21-32); CHLORIDE 104 mmol/L (101-111); CHOL/HDL RATIO 2.2 (<4.4); CHOLESTEROL 107 mg/dL; CREATININE 1.2 mg/dL (0.4-1.0); GFR - MDRD 44 (>89); GLUCOSE 189 mg/dL (70-100); HDL CHOLESTEROL 48 mg/dL; LDL CHOLESTEROL,CALCULATED 39 mg/dL; LDL/HDL RATIO 0.8 (<4.4); POTASSIUM 4.9 mmol/L (3.5-5.0); SODIUM 137 mmol/L (135-145); TOTAL PROTEIN 7.6 g/dL (6.7-8.2); TRIGLYCERIDES 102 mg/dL; VLDL CHOLESTEROL 20 mg/dL
[2022-01-02 20:24] LABS: ESTIMATED AVERAGE GLUCOSE 192 mg/dL (70-100); HEMOGLOBIN A1c% 8.3 % (4.27-6.07)
== END 2022-01-02 09:02 | disposition home or self-care (01) ==
LOC: LAB.N 09:01
PROVIDERS: ATTEND Physician Assistant Medical
DX: E11.9 Type 2 diabetes mellitus without complications (principal)
CPT/HCPCS: 36415; 80053; 80061; 83036; 83721

== ENCOUNTER 2022-05-29 08:55 | Outpatient (CLI) | payer MEDICARE ==
[2022-05-29 12:39] LABS: CALCIUM 8.8 mg/dL (8.5-10.3); CREATININE 1.2 mg/dL (0.4-1.0); POTASSIUM 4.9 mmol/L (3.5-5.0)
[2022-05-29 13:10] LABS: THYROID STIMULATING HORMONE 2.4 uIU/mL (0.34-5.60)
[2022-05-29 13:17] LABS: ESTIMATED AVERAGE GLUCOSE 189 mg/dL (70-100); HEMOGLOBIN A1c% 8.2 % (4.27-6.07)
== END 2022-05-29 08:56 | disposition home or self-care (01) ==
LOC: LAB.N 08:55
PROVIDERS: ATTEND Physician Assistant Medical
DX: E11.29 Type 2 diabetes mellitus with other diabetic kidney complication (principal); E03.9 Hypothyroidism, unspecified
CPT/HCPCS: 36415; 80048; 83036; 84443

== ENCOUNTER 2022-07-22 12:00 | Outpatient (CLI) | payer MEDICARE | END 2022-07-22 12:01 | disposition home or self-care (01) | LOC: DI 12:00 | PROVIDERS: ATTEND Physician Assistant Medical | DX: R01.1 Cardiac murmur, unspecified (principal) | CPT/HCPCS: 93306 ==

== ENCOUNTER 2022-08-03 14:43 | Emergency (ER) | payer MEDICARE ==
[2022-08-03 16:47] LABS: BASOPHILS # (AUTO) 0.1 10^3/uL (0.0-0.1); EOSINOPHILS # (AUTO) 0.3 10^3/uL (0.0-0.7); EOSINOPHILS % (AUTO) 3.4 %; HCT - HEMATOCRIT 39.4 % (37.0-47.0); HGB - HEMOGLOBIN 12.4 g/dL (12.0-16.0); LYMPHOCYTES # (AUTO) 1.4 10^3/uL (1.5-3.5); MEAN CORPUSCULAR HEMOGLOBIN 30.8 pg (27.0-31.0); MEAN CORPUSCULAR HGB CONC 31.5 g/dL (32.0-36.0); MEAN CORPUSCULAR VOLUME 97.8 fL (81.0-99.0); MEAN PLATELET VOLUME 9.9 fL (7.9-10.8); MONOCYTES # (AUTO) 0.7 10^3/uL (0.0-1.0); MONOCYTES % (AUTO) 6.8 %; NEUTROPHILS # (AUTO) 7.2 10^3/uL (1.5-6.6); NEUTROPHILS % (AUTO) 74.4 %; PLT - PLATELET COUNT 232 10^3/uL (130-450); RED BLOOD COUNT 4.03 10^6/uL (4.20-5.40); RED CELL DISTRIBUTION WIDTH 13.1 % (12.0-15.0); WHITE BLOOD COUNT 9.7 x10^3/uL (4.8-10.8)
[2022-08-03 17:01] LABS: ALBUMIN 4.2 g/dL (3.2-5.5); ALBUMIN/GLOBULIN RATIO 1.2 (1.0-2.2); BILIRUBIN,TOTAL 0.8 mg/dL (0.2-1.0); CALCIUM 9.2 mg/dL (8.5-10.3); CREATININE 1.2 mg/dL (0.4-1.0); POTASSIUM 4.4 mmol/L (3.5-5.0); TOTAL PROTEIN 7.7 g/dL (6.7-8.2)
[2022-08-03] MEDS ORDERED: iohexoL-300 100 ML VIAL ONE (17:08)
--- NOTE | 2022-08-03 17:14 | ED Physician Documentation ---
History of Present Illness - Stated complaint Stated Complaint: SWELLING KNEES DOWN - Chief complaint Chief Complaint: Ext Problem - Additonal information Additional information: 77-year-old female presents to the emergency department for concern of bilateral lower extremity leg swelling which has begun to develop over the last 2 weeks. She is also reporting 1 month of lower abdominal pain and 3 days of shortness of air. She does have a history of diabetes as well as hypertension and hyperlipidemia. She underwent an echocardiogram about 2 weeks ago that showed a normal ejection fraction. The patient denies chest pain, no fevers or cough. With the 1 month of lower abdominal pain she is concerned perhaps she had a urinary tract infection so she did take Augmentin this morning which had been prescribed for dental prophylaxis. Patient is concerned because she has had bilateral knee replacements and she is afraid that the leg swelling may inhibit her ability to walk. She has a remote history of smoking but denies any history of COPD and does not use oxygen at home. No inhalers. Review of Systems Constitutional: denies: Fever, Chills Cardiac: reports: Other (Bilateral lower extremity edema). denies: Chest pain / pressure, Palpitations Respiratory: reports: Dyspnea. denies: Cough GI: reports: Abdominal Pain. denies: Nausea, Vomiting : denies: Dysuria Skin: reports: Reviewed and negative Musculoskeletal: reports: Reviewed and negative PD PAST MEDICAL HISTORY - Past Medical History Cardiovascular: None Respiratory: Shortness of breath Neuro: None Endocrine/Autoimmune: Type 2 diabetes, HyPOthyroidism GI: Ulcers, Chronic diarrhea, Chronic constipation : Chronic bladder infection, Kidney stones HEENT: Other Psych: None Musculoskeletal: Osteoarthritis, Chronic back pain Derm: Psoriasis - Past Surgical History Past Surgical History: Yes General: Cholecystectomy, Appendectomy, Hiatal hernia repair Ortho: Knee replacement, Spine surgery /CLOTH DRIER: Hysterectomy HEENT: Tonsil/Adenoidectomy Derm: Skin cancer surgery - Present Medications Home Medications: Ambulatory Orders Medication Instructions Recorded Confirmed ALPRAZolam [Xanax] 0.5 mg BID PRN 06/22/14 07/11/19 Aspirin 81 mg DAILY 06/22/14 07/11/19 Cyclobenzaprine [Flexeril] 10 mg PO BID 06/22/14 07/11/19 Indomethacin [Indocin] 50 mg TID PRN 06/22/14 07/11/19 Insulin Glargine,Hum.rec.anlog 30 units TID 06/22/14 07/11/19 [Lantus Solostar] Levothyroxine [Synthroid] 125 mg PO DAILY 06/22/14 07/11/19 lisinopriL [Lisinopril] 40 mg PO DAILY 06/22/14 07/11/19 metFORMIN [Glucophage] 1,000 mg BID 06/22/14 07/11/19 traMADol [Ultram] 50 mg QID PRN 06/22/14 07/06/19 Hydrocodone/Acetaminophen 1 - 2 each PO Q6H PRN #20 tablet 09/20/15 07/11/19 [Hydrocodon-Acetaminophen 5-325] Albuterol Sulfate [Proventil Hfa 1 - 2 puffs INH Q4H PRN #1 inhaler 04/15/17 07/06/19 Inhaler] Atorvastatin Calcium 40 mg PO DAILY 07/06/19 07/11/19 Ciprofloxacin HCl [Cipro] 500 mg PO BID 07/11/19 07/11/19 Tamsulosin HCl [Flomax] 0.4 mg PO DAILY 07/11/19 07/11/19 Furosemide [Lasix] 20 mg PO DAILY #7 tablet 08/03/22 Potassium Chloride [Klor-Con M10] 10 meq PO DAILY #7 tab 08/03/22 - Allergies Allergies/Adverse Reactions: Allergies Allergy/AdvReac Type Severity Reaction Status Date / Time Iodinated Contrast Media Allergy Mild Rash Verified 08/03/22 15:20 diphenhydramine Allergy Unknown Verified 08/03/22 15:20 felodipine Allergy Unknown Verified 08/03/22 15:20 fluticasone Allergy Headache Verified 08/03/22 15:20 hydromorphone [Hydromorphone] AdvReac Unknown Verified 08/03/22 15:20 lovastatin AdvReac Unknown Verified 08/03/22 15:20 - Social History Does the pt smoke?: No Smoking Status: Former smoker (quit 18 years ago) Does the pt drink ETOH?: No Does the pt have substance abuse?: No - Immunizations Immunizations are current?: Yes - POLST Patient has POLST: No PD ED PE NORMAL - General General: Alert and oriented X 3, No acute distress - HEENT HEENT: Atraumatic, Moist mucous membranes - Neck Neck: Supple, no meningeal sign, No adenopathy - Cardiac Cardiac: RRR, Strong equal pulses, Other (1+ pitting edema from the feet to just below the knees bilaterally. No posterior calf pain tenderness elicited). No: No murmur (3/6 systolic murmur) - Respiratory Respiratory: No respiratory distress, Clear bilaterally - Abdomen Abdomen: Normal bowel sounds, Soft - Derm Derm: Normal color, Warm and dry - Extremities Extremities: No deformity, No tenderness to palpate, Normal ROM s pain - Neuro Neuro: Alert and oriented X 3, supervisor order takers 2-12 intact Eye Opening: Spontaneous Motor: Obeys Commands Verbal: Oriented GCS Score: 15 Results - Vitals Vitals: Vital Signs - 24 hr 08/03/22 08/03/22 15:15 17:19 Temperature 37.3 C Heart Rate 106 H 101 H Respiratory 22 18 Rate Blood Pressure 177/110 H O2 Saturation 93 99 Oxygen O2 Source Room air - EKG (time done) 1716 Rate: Rate (enter#) (98) Rhythm: NSR [place]: Normal Intervals: Normal MD QRS: Normal Ischemia: Normal ST segments Compare to prior EKG: Unchanged from prior EKG Computer interpretation: Agree with computer - Labs Labs: Laboratory Tests 08/03/22 08/03/22 08/03/22 16:40 16:40 16:40 WBC 9.7 RBC 4.03 L Hgb 12.4 Hct 39.4 MCV 97.8 MCH 30.8 MCHC 31.5 L RDW 13.1 Plt Count 232 MPV 9.9 Neut # (Auto) 7.2 H Lymph # (Auto) 1.4 L [place] # (Auto) 0.7 Eos # (Auto) 0.3 Baso # (Auto) 0.1 Absolute Nucleated RBC 0.00 Nucleated RBC % 0.0 Sodium 139 Potassium 4.4 Chloride 103 Carbon Dioxide 28 Anion Gap 8.0 BUN 31 H Creatinine 1.2 H Estimated GFR (MDRD) 44 L Glucose 223 H Calcium 9.2 Total Bilirubin 0.8 AST 21 ALT 24 Alkaline Phosphatase 60 B-Natriuretic Peptide 25 Total Protein 7.7 Albumin 4.2 Globulin 3.5 Albumin/Globulin Ratio 1.2 Lipase 25 Urine Color Urine Clarity Urine pH Ur Specific [place] Urine Protein Urine Glucose (UA) Urine Ketones Urine Occult Blood Urine Nitrite Urine Bilirubin Urine Urobilinogen Ur Leukocyte Esterase Ur Microscopic Review Urine Culture Comments 08/03/22 16:52 WBC RBC Hgb Hct MCV MCH MCHC RDW Plt Count MPV Neut # (Auto) Lymph # (Auto) [place] # (Auto) Eos # (Auto) Baso # (Auto) Absolute Nucleated RBC Nucleated RBC % Sodium Potassium Chloride Carbon Dioxide Anion Gap BUN Creatinine Estimated GFR (MDRD) Glucose Calcium Total Bilirubin AST ALT Alkaline Phosphatase B-Natriuretic Peptide Total Protein Albumin Globulin Albumin/Globulin Ratio Lipase Urine Color YELLOW Urine Clarity CLEAR Urine pH 6.0 Ur Specific [place] 1.020 Urine Protein NEGATIVE Urine Glucose (UA) >=1000 H Urine Ketones NEGATIVE Urine Occult Blood NEGATIVE Urine Nitrite NEGATIVE Urine Bilirubin NEGATIVE Urine Urobilinogen 0.2 (NORMAL) Ur Leukocyte Esterase NEGATIVE Ur Microscopic Review NOT INDICATED Urine Culture Comments NOT INDICATED - Rads (name of study) cxr Radiology: Final report received (Mild interstitial prominence can be seen. Please consider mild pulmonary edema) CT chest Radiology: Final report received (Severe coronary artery calcifications. No evidence of acute pulmonary process) CT abd Radiology: Final report received (No evidence of acute abdominal process. Extensive diverticulosis without evidence of diverticulitis. Multilevel lumbar fusion. No evidence of acute bony abnormality of the lower thoracic spine and lumbar spine) PD Medical Decision Making - ED course Complexity details: reviewed results, re-evaluated patient, considered di fferential, d/w patient ED course: 77-year-old female comes to the emergency department with a chief complaint of 3-day shortness of air as well as 2 weeks swelling in her bilateral lower extremities. She is also been having 1 month of lower abdominal pain. No fevers, no vomiting no dysuria. She is denying chest pain. She does have a history of diabetes, hypertension as well as hyperlipidemia. She did have an echocardiogram completed on the of this month here at [facility] that showed a normal ejection fraction and just some trace mitral and aortic regurg. Here in the emergency department We did obtain a CBC electrolytes and a BNP. CBC showed no worrisome findings such as anemia as a cause for lower extremity swelling. She does have a BUN of 21 and a creatinine of 1.2. Her BNP is not elevated. Her blood sugar was 233. This is in the setting of diabetes and not taking her insulin today. Her EKG shows sinus rhythm without any ischemic changes and is essentially unchanged from previous. Chest x-ray however suggested some volume overload and heart failure. We did proceed to do a CT of the abdomen and pelvis given the month-long history of lower abdominal pain and there were no findings such as mass on the IVC that could occlude flow or acute abdominal processes. Incidental finding was made of extensive diverticulosis without diverticulitis. The patient was initially mildly short of air she was not hypoxic. Given the findings on chest x-ray as well as the weeks of lower extremity swelling I did administer IV Lasix here in the emergency department with good diuresis. The patient was feeling less short of air on reevaluation. With this finding I will plan to place the patient on 1 week of Lasix as well as some supplemental potassium and have her follow closely with her primary care provider. Clinically the patient does not appear to be in overt heart failure. My suspicion for DVT is rather low given the bilateral nature of the swelling, and lack of travel or risk factors for such. By Wells criteria there is low suspicion. Without hypoxia or pleuritic chest pain I had low suspicion for PE. Clinically there are no findings to suggest pneumonia or an acute abdominal process. She is discharged home in stable condition. I am advising close follow-up with her primary care provider. Emergent return precautions otherwise discussed Departure - Departure Disposition: 01 Home, Self Care Clinical Impression: Swelling of both lower extremities Condition: Stable Record reviewed to determine appropriate education?: Yes Prescriptions: Potassium Chloride [Klor-Con M10] 10 meq PO DAILY #7 tab Furosemide [Lasix] 20 mg PO DAILY #7 tablet Comments: Veronique gill came to the emergency department because for about 2 weeks you have been having swelling in both your lower legs. You also began having some shortness of air. You had also reported that for about 1 month you have been having lower abdominal pain. Here in the emergency department your urine showed no signs of infection. Your CBC was normal. Your electrolytes did not show any worrisome findings. The chest x-ray we did suggested some early volume overload or pulmonary edema/heart failure. We did do a CT of your abdomen and did not have any findings that were worrisome such as a mass within the abdomen or an acute surgical process. We did give you some Lasix here in the emergency department and you have started to make a lot of urine. You are reporting that your breathing is easier. The echocardiogram completed on 22 July also did not show any worrisome or new findings. At this time it is not not clear with the cause of the swelling in both your lower legs is due to. I do make the recommendation that you fill the prescription for the Lasix and begin taking each day for the next week. I have also ordered some potassium supplementation. It is very important that you discuss this ED visit with your primary care doctor over the next week. If you are finding the Lasix helpful in managing your leg swelling your primary doctor can talk about longer-term management or other testing that may be necessary. If any point you develop worsening symptoms, develop severe chest pain, have severe shortness of air or develop high fevers and please return to the ER for second evaluation
--- NOTE | 2022-08-03 17:16 | XRAY Report ---
PROCEDURE: Chest 1 View X-Ray INDICATIONS: Chest Pain TECHNIQUE: One view of the chest was acquired. COMPARISON: 07/08/2019 FINDINGS: Surgical changes and devices: Cervical spine fixation hardware is partially seen. Lungs and pleura: No pleural effusions or pneumothorax. Mild interstitial prominence can be seen. Mediastinum: Mediastinal contours appear normal. Heart size is normal. Bones and chest wall: No suspicious bony lesions. Age-appropriate degenerative changes are seen. O verlying soft tissues appear unremarkable. IMPRESSION: Mild interstitial prominence can be seen. Please consider mild pulmonary edema. Reviewed by: Cresencio Benton MD on 08/03/2022 4:14 PM [facility] Approved by: Cresencio Benton MD on 08/03/2022 4:14 PM [facility] Station ID: [id number]
[2022-08-03] MEDS ORDERED: FUROSEMIDE 20 MG/2 ML VIAL IVP STA (17:17)
[2022-08-03 17:48] LABS: BILIRUBIN,URINE NEGATIVE (NEGATIVE); GLUCOSE, URINE (UA) >=1000 mg/dL (NEGATIVE); KETONES,URINE (UA) NEGATIVE (NEGATIVE); LEUKOCYTE ESTERASE, URINE NEGATIVE (NEGATIVE); NITRITE,URINE NEGATIVE (NEGATIVE); OCCULT BLOOD,URINE NEGATIVE (NEGATIVE); PROTEIN,URINE NEGATIVE (NEGATIVE); UROBILINOGEN,URINE 0.2 (NORMAL) E.U./dL (NORMAL)
[2022-08-03 17:50] LABS: CLARITY,URINE CLEAR (CLEAR)
--- NOTE | 2022-08-03 18:03 | CT Report ---
PROCEDURE: CHEST WO INDICATIONS: SOA TECHNIQUE: Noncontrast 1mm axial images were acquired from the pulmonary apices to the posterior costophrenic an gles. Axial 5 mm soft tissue kernel reconstructions were performed as well as 8 mm axial MIP and cor onal and sagittal 5 mm reformations. For radiation dose reduction, the following was used: automate d exposure control, adjustment of mA and/or kV according to patient size. COMPARISON: 12/23/2018 CT chest with contrast FINDINGS: Image quality: Excellent. Lungs and pleura: No acute air space opacities. No pleural effusions or pneumothorax. Central and peripheral airways are patent and normal in caliber. Mediastinum: Heart size is normal. No pericardial effusion. Severe coronary artery calcifications. No mediastinal adenopathy by size criteria. Thoracic aorta and central pulmonary arteries are mary carmen l in size. Esophagus is normal in caliber. No hiatal hernia. Bones and chest wall: No suspicious bony lesions. No vertebral body compression fractures. No axil cody or supraclavicular adenopathy by size criteria. The thyroid is normal in size and there are no incidental findings. Abdomen: Visualized upper abdominal solid organs and bowel loops appear normal in the absence of con trast. IMPRESSION: 1. Severe coronary artery calcifications. 2. No evidence acute pulmonary process. CLINICAL RECOMMENDATION STATEMENTS: In patients <35 years with an ITN detected on CT, MRI, or extrathyroidal ultrasound, the Committee re commends further evaluation with dedicated thyroid ultrasound if the nodule is "e1 cm and has no susp icious imaging features, and if the patient has normal life expectancy. In patients "e35 years with an ITN detected on CT, MRI, or extrathyroidal ultrasound, the Committee r ecommends further evaluation with dedicated thyroid ultrasound if the nodule is "e1.5 cm and has no s uspicious imaging features, and if the patient has normal life expectancy. (ACR, 2014) Reviewed by: Soy Jordan MD on 08/03/2022 6:02 PM PST Approved by: Soy Jordan MD on 08/03/2022 6:02 PM PST Station ID: [id number]
--- NOTE | 2022-08-03 18:08 | CT Report ---
PROCEDURE: ABDOMEN/PELVIS WO INDICATIONS: LOW B ACK PAIN, ABD PAIN TECHNIQUE: Noncontrast 5 mm thick sections acquired from the diaphragms to the symphysis. 5 mm coronal and sagi ttal reformats were then performed. For radiation dose reduction, the following was used: automated exposure control, adjustment of mA and/or kV according to patient size. COMPARISON: 10/09/2021 FINDINGS: Image quality: Excellent. ABDOMEN: Lung bases: Lung bases are clear. Heart size is normal. Solid organs: Liver and spleen are normal in size. Gallbladder is surgically absent Pancreas is no rmal in contours. 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 No suspicious adrenal masses. Kidn eys are normal in size, without hydronephrosis or nephrolithiasis. Peritoneum and bowel: Unenhanced bowel loops demonstrate normal wall thickness and caliber. No free fluid or air. Nodes and vessels: No retroperitoneal or mesenteric adenopathy by size criteria. Aorta and inferior vena cava are normal in caliber. Miscellaneous: No ventral hernias. PELVIS: Genitourinary: Bladder wall thickness is normal. Miscellaneous: No inguinal hernias or adenopathy. Uterus appears to be surgically absent. Bones: Posterior lateral pool and pedicle screw fixation of L2-L5 with pedicle screws at each level, a nd disc spacers at all levels. Resultant metallic artifact. No suspicious bony lesions. No vertebral body compression fractures. IMPRESSION: 1. No evidence of acute abdominal process. 2. Extensive diverticulosis without evidence of diverticulitis. 3. Multilevel lumbar fusion. No evidence of acute bony abnormality of the lower thoracic spine and anthony mbar spine. Reviewed by: Soy Jordan MD on 08/03/2022 6:07 PM PST Approved by: Soy Jordan MD on 08/03/2022 6:07 PM PST Station ID: [id number]
[2022-08-03 18:43] VITALS: BP 164/80
== END 2022-08-03 18:48 | disposition home or self-care (01) ==
LOC: ED 14:43
DX: R22.43 Localized swelling, mass and lump, lower limb, bilateral (principal); R06.02 Shortness of breath; R10.30 Lower abdominal pain, unspecified; E11.9 Type 2 diabetes mellitus without complications; I10 Essential (primary) hypertension; E78.5 Hyperlipidemia, unspecified; Z87.891 Personal history of nicotine dependence; Z79.84 Long term (current) use of oral hypoglycemic drugs; Z79.4 Long term (current) use of insulin
CPT/HCPCS: 36415; 80053; 81001; 81003; 83690; 83880; 85025; 87086; 93005; 96374; 99284

== ENCOUNTER 2022-08-11 10:06 | Outpatient (CLI) | payer MEDICARE ==
[2022-08-11 12:28] LABS: CHOL/HDL RATIO 2.4 (<4.4); CHOLESTEROL 102 mg/dL; HDL CHOLESTEROL 43 mg/dL; LDL CHOLESTEROL,CALCULATED 39 mg/dL; LDL/HDL RATIO 0.9 (<4.4); TRIGLYCERIDES 99 mg/dL; VLDL CHOLESTEROL 20 mg/dL
[2022-08-11 14:44] LABS: ESTIMATED AVERAGE GLUCOSE 186 mg/dL (70-100); HEMOGLOBIN A1c% 8.1 % (4.27-6.07)
== END 2022-08-11 10:07 | disposition home or self-care (01) ==
LOC: LAB.N 10:06
PROVIDERS: ATTEND Physician Assistant Medical
DX: E78.5 Hyperlipidemia, unspecified (principal); E11.29 Type 2 diabetes mellitus with other diabetic kidney complication
CPT/HCPCS: 36415; 80061; 83036; 83721

== ENCOUNTER 2022-11-13 08:23 | Outpatient (CLI) | payer MEDICARE ==
[2022-11-13 12:05] LABS: CREATININE 1.2 mg/dL (0.4-1.0); POTASSIUM 4.3 mmol/L (3.5-5.0)
[2022-11-13 12:20] LABS: ESTIMATED AVERAGE GLUCOSE 209 mg/dL (70-100); HEMOGLOBIN A1c% 8.9 % (4.27-6.07)
== END 2022-11-13 08:24 | disposition home or self-care (01) ==
LOC: LAB.N 08:23
PROVIDERS: ATTEND Physician Assistant Medical
DX: E11.29 Type 2 diabetes mellitus with other diabetic kidney complication (principal)
CPT/HCPCS: 36415; 80048; 83036

== ENCOUNTER 2023-02-09 07:09 | Outpatient (CLI) | payer MEDICARE ==
[2023-02-09 12:15] LABS: ESTIMATED AVERAGE GLUCOSE 177 mg/dL (70-100); HEMOGLOBIN A1c% 7.8 % (4.27-6.07)
[2023-02-09 12:21] LABS: CALCIUM 9.3 mg/dL (8.5-10.3); CREATININE 1.2 mg/dL (0.4-1.0); POTASSIUM 4.9 mmol/L (3.5-5.0)
== END 2023-02-09 07:10 | disposition home or self-care (01) ==
LOC: LAB.N 07:09
PROVIDERS: ATTEND Physician Assistant Medical
DX: E11.29 Type 2 diabetes mellitus with other diabetic kidney complication (principal)
CPT/HCPCS: 36415; 80048; 83036

== ENCOUNTER 2023-05-13 07:40 | Outpatient (CLI) | payer MEDICARE ==
[2023-05-13 12:15] LABS: CALCIUM 9.1 mg/dL (8.5-10.3); CREATININE 1.2 mg/dL (0.6-1.3); POTASSIUM 4.4 mmol/L (3.5-4.5)
[2023-05-13 13:17] LABS: ESTIMATED AVERAGE GLUCOSE 160 mg/dL (70-100); HEMOGLOBIN A1c% 7.2 % (4.27-6.07)
== END 2023-05-13 07:41 | disposition home or self-care (01) ==
LOC: LAB.N 07:40
PROVIDERS: ATTEND Physician Assistant Medical
DX: E11.29 Type 2 diabetes mellitus with other diabetic kidney complication (principal)
CPT/HCPCS: 36415; 80048; 83036

== ENCOUNTER 2023-06-24 07:10 | Day surgery (SDC) | payer MEDICARE ==
[2023-06-24] MEDS ORDERED: LACTATED RINGERS 1,000 ML IV ONE ×2 (07:56→10:13)
--- NOTE | 2023-06-24 08:12 | ANESTHESIA ---
Pre-Anesthesia VS, & Labs - Diagnosis hiatal hernia, screening colonoscopy - Procedure EGD and colonoscopy Vital Signs: Temp Pulse Resp BP Pulse Ox O2 Flow Rate 36.2 C L 106 H 19 125/64 95 06/24/23 07:21 06/24/23 07:21 06/24/23 07:21 06/24/23 07:21 06/24/23 07:21 Height: 5 ft 9 in Weight (kg): 120.4 kg Body Mass Index: 39.2 BMI Classification: Obese - NPO >8 hours - Is Patient ?: No - Lab Results Current Lab Results: Laboratory Tests 06/24/23 07:44: POC Whole Bld Glucose 169 H Lab results reviewed: Yes Home Medications and Allergies Home Medications: Ambulatory Orders Empagliflozin [Jardiance] 25 mg PO DAILY 06/24/23 Insulin Glargine [Lantus Solostar] 100 units SUBQ DAILY 06/24/23 Insulin Regular Human [Humulin R] 10 unit SUBQ BID 06/24/23 Multivitamin 1 each PO DAILY 06/24/23 [place]-3/Dha/Epa/Fish Oil [Fish Oil 1,000 mg Softgel] 1 each PO BID 06/24/23 Omeprazole 40 mg PO DAILY 06/24/23 Saccharomyces Boulardii [Florastor] 250 mg PO BIDWM 06/24/23 Semaglutide [Ozempic] 2 mg SQ OAW 06/24/23 Spironolactone [Aldactone] 25 mg PO DAILY 06/24/23 Trazodone HCl 100 mg PO DAILY 06/24/23 methocarbamoL [Methocarbamol] 750 mg PO TID 06/24/23 ALPRAZolam [Xanax] 0.5 mg BID PRN 06/22/14 Indomethacin [Indocin] 50 mg PO TID PRN 06/22/14 Levothyroxine [Synthroid] 125 mg PO DAILY 06/22/14 lisinopriL [Lisinopril] 40 mg PO DAILY 06/22/14 Atorvastatin Calcium 40 mg PO DAILY 07/06/19 Empagliflozin [Jardiance] 25 mg PO DAILY 06/24/23 Insulin Glargine [Lantus Solostar] 100 units SUBQ DAILY 06/24/23 Insulin Regular Human [Humulin R] 10 unit SUBQ BID 06/24/23 Multivitamin 1 each PO DAILY 06/24/23 [place]-3/Dha/Epa/Fish Oil [Fish Oil 1,000 mg Softgel] 1 each PO BID 06/24/23 Omeprazole 40 mg PO DAILY 06/24/23 Saccharomyces Boulardii [Florastor] 250 mg PO BIDWM 06/24/23 Semaglutide [Ozempic] 2 mg SQ OAW 06/24/23 Spironolactone [Aldactone] 25 mg PO DAILY 06/24/23 Trazodone HCl 100 mg PO DAILY 06/24/23 methocarbamoL [Methocarbamol] 750 mg PO TID 06/24/23 Allergies/Adverse Reactions: Allergies Allergy/AdvReac Type Severity Reaction Status Date / Time Iodinated Contrast Media Allergy Mild Rash Verified 08/03/22 15:20 diphenhydramine Allergy Unknown Verified 08/03/22 15:20 felodipine Allergy Unknown Verified 08/03/22 15:20 fluticasone Allergy Headache Verified 08/03/22 15:20 Sulfa (Sulfonamide Allergy Rash Verified 06/24/23 08:06 Antibiotics) hydromorphone [Hydromorphone] AdvReac Unknown Verified 08/03/22 15:20 lovastatin AdvReac Unknown Verified 08/03/22 15:20 Anes History & Medical History - Anesthetic History Anesthesia Complications: reports: No previous complications - Medical History Cardiovascular: reports: None Pulmonary: reports: Shortness of breath Gastrointestinal: reports: Ulcers, Chronic diarrhea, Chronic constipation Urinary: reports: Chronic bladder infection, Kidney stones Neuro: reports: None Musculoskeletal: reports: Osteoarthritis, Chronic back pain Endocrine/Autoimmune: reports: Type 2 diabetes, HyPOthyroidism Blood Disorders: reports: None Skin: reports: Psoriasis Smoking Status: Former smoker (quit 18 years ago) Psychosocial: reports: No issues indicated History of Cancer?: Yes (uterine cancer and melanoma) - Surgical History General: reports: Cholecystectomy, Appendectomy, Hiatal hernia repair, Colonoscopy Eyes Ears Nose Throat (EENT): reports: Tonsil/Adenoidectomy Gynecologic: reports: Hysterectomy Orthopedic: reports: Knee replacement, Spine surgery Dermatologic: reports: Skin cancer surgery Exam General: Alert, Oriented x3, Cooperative, No acute distress Dental: WNL Mouth Openin Fingerbreadth Neck Mobility: Reduced Mallampati classification: II Thyromental Distance: 4-6 cm Mental/Cognitive Status: Alert/Oriented X3, Normal for patient Plan Anesthesia Type: General, Total IV Consent for Procedure(s) Verified and Reviewed: Yes Code Status: Attempt Resuscitation ASA classification: 3-Severe systemic disease Is this case an emergency?: No
[2023-06-24] MEDS ORDERED: LIDOCAINE-MPF 2% 5 ML VIAL ONE (08:27)
[2023-06-24] MEDS ORDERED: PROPOFOL 500 MG/50 ML 500 MG/50 ML VIAL ONE (08:27)
[2023-06-24 10:48] VITALS: BP 122/78; O2SAT 99
--- NOTE | 2023-06-24 16:54 | ANESTHESIA POST OP EVALUATION ---
Anesthesia Post Eval - Post Anesthesia Eval Vitals: Last Vital Signs Temp 36.6 C 06/24/23 10:44 Pulse 76 06/24/23 10:44 Resp 19 06/24/23 10:44 BP 122/78 06/24/23 10:44 Pulse Ox 99 06/24/23 10:44 O2 Flow Rate CV Function Including HR & BP: Stable Pain Control: Satisfactory Nausea & Vomiting: Negative Mental Status: Baseline Respiratory Status: Airway Patent Hydration Status: Satisfactory Anesthesia Complications: None
== END 2023-06-24 07:11 | disposition home or self-care (01) ==
LOC: SDS 07:10
PROVIDERS: ATTEND Surgery
PROC: 0DJD8ZZ Inspection of Lower Intestinal Tract, Via Natural or Artificial Opening Endoscopic (ICD-10-PCS; principal; 2023-06-24 08:30)
PROC: 0DB48ZX Excision of Esophagogastric Junction, Via Natural or Artificial Opening Endoscopic, Diagnostic (ICD-10-PCS; 2023-06-24 08:30)
DX: Z12.11 Encounter for screening for malignant neoplasm of colon (principal); K57.30 Diverticulosis of large intestine without perforation or abscess without bleeding; K21.9 Gastro-esophageal reflux disease without esophagitis; K22.89 Other specified disease of esophagus; J43.9 Emphysema, unspecified; J44.9 Chronic obstructive pulmonary disease, unspecified; E66.9 Obesity, unspecified; E11.9 Type 2 diabetes mellitus without complications; Z87.891 Personal history of nicotine dependence; Z79.4 Long term (current) use of insulin; Z68.39 Body mass index [BMI] 39.0-39.9, adult
CPT/HCPCS: 43239; G0105; J7120

== ENCOUNTER 2023-07-23 14:33 | Outpatient (CLI) | payer MEDICARE ==
--- NOTE | 2023-07-23 19:31 | XRAY Report ---
PROCEDURE: Knee 3 View LT INDICATIONS: LEFT KNEE PAIN TECHNIQUE: 3 views of the knee was obtained. COMPARISON: None FINDINGS: Bones: No fractures or dislocations. No suspicious bony lesions. Total knee prosthesis in place Soft tissues: No knee joint effusion. No suspicious soft tissue calcifications or masses. IMPRESSION: Total knee prosthesis in place. No fracture or failure. Reviewed by: Lyndon Alcantara MD on 07/23/2023 6:29 PM [facility] Approved by: Lyndon Alcantara MD on 07/23/2023 6:29 PM [place] Station ID: [id number]
== END 2023-07-23 14:34 | disposition home or self-care (01) ==
LOC: DI 14:33
PROVIDERS: ATTEND Physician Assistant Medical
DX: M25.562 Pain in left knee (principal); Z96.652 Presence of left artificial knee joint

== ENCOUNTER 2023-08-14 12:58 | Outpatient (CLI) | payer MEDICARE ==
[2023-08-14 13:29] LABS: CREATININE 1.1 mg/dL (0.6-1.3)
[2023-08-14] MEDS ORDERED: DIATRIZOATE MEGLU/DIATRIZO SOD 30 ML BOTTLE PO ONE ×2 (13:36→16:42)
[2023-08-14] MEDS ORDERED: iohexoL-300 100 ML VIAL IVP ONE (16:41)
--- NOTE | 2023-08-14 17:20 | CT Report ---
PROCEDURE: Abdomen/Pelvis W INDICATIONS: ABD PAIN CONTRAST: Omni 300 100ml TECHNIQUE: After the administration of intravenous contrast, a CT scan of the abdomen and pelvis was performed. Images were recorded and evaluated at appropriate window settings. Reformats: coronal and sagittal. F or radiation dose reduction, the following was used: automated exposure control, adjustment of mA and /or kV according to patient size. COMPARISON: CT abdomen pelvis 10/10/2021. FINDINGS: Image quality: Streak metal artifact from spinal fusion hardware limits evaluation of surrounding sof t tissue.. Lung bases and heart: Unremarkable. Liver: No solid mass. Gallbladder and biliary tree: Surgically absent. No biliary dilation, accounting for post-cholecystec lizzie state. Spleen: No splenomegaly. Pancreas: No pancreatic ductal dilation. 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 Kidneys and ureters: No hydronephrosis. No renal cystic lesion which requires follow up. No solid mas s. Bowel and peritoneum: No bowel distension. No pathologic free fluid. Cardiac diverticulosis with out evidence of acute inflammation. Lymph nodes: No central or retroperitoneal adenopathy. Vessels: No infrarenal aortic aneurysm. Aortobiiliac atherosclerotic calcifications. PELVIS Reproductive organs: Unremarkable. Bladder: No abnormal wall thickening, accounting for underdistention. Pelvic lymph nodes: No pelvic adenopathy by size criteria. Bones: Status post L2-L5 posterior fixation using. Vertical rods and transpedicular screws. Degenerat alta changes without acute osseous abnormality.. Other: No significant ventral or inguinal hernia. IMPRESSION: No acute process in the abdomen or pelvis to explain patient's symptoms. Diverticulosis without CT evidence of acute diverticulitis. Reviewed by: Kya Perez MD on 08/14/2023 5:19 PM PST Approved by: Kya Perez MD on 08/14/2023 5:19 PM PST Station ID: [id number]
== END 2023-08-14 12:59 | disposition home or self-care (01) ==
LOC: LAB 12:58
PROVIDERS: ATTEND Physician Assistant Medical
DX: R10.84 Generalized abdominal pain (principal); K57.90 Diverticulosis of intestine, part unspecified, without perforation or abscess without bleeding
CPT/HCPCS: 36415; 74177; 82565; Q9963; Q9967

== ENCOUNTER 2023-08-18 14:34 | Outpatient (CLI) | payer MEDICARE ==
[2023-08-18 17:43] LABS: BASOPHILS # (AUTO) 0.1 10^3/uL (0.0-0.1); BASOPHILS % (AUTO) 1.2 %; EOSINOPHILS # (AUTO) 0.7 10^3/uL (0.0-0.7); EOSINOPHILS % (AUTO) 7.2 %; HCT - HEMATOCRIT 39.4 % (37.0-47.0); HGB - HEMOGLOBIN 12.9 g/dL (12.0-16.0); LYMPHOCYTES % (AUTO) 21.3 %; MEAN CORPUSCULAR HEMOGLOBIN 31.7 pg (27.0-31.0); MEAN CORPUSCULAR HGB CONC 32.7 g/dL (32.0-36.0); MEAN CORPUSCULAR VOLUME 96.8 fL (81.0-99.0); MEAN PLATELET VOLUME 10.6 fL (7.9-10.8); MONOCYTES # (AUTO) 0.7 10^3/uL (0.0-1.0); MONOCYTES % (AUTO) 7.3 %; NEUTROPHILS # (AUTO) 5.8 10^3/uL (1.5-6.6); NEUTROPHILS % (AUTO) 62.6 %; PLT - PLATELET COUNT 270 10^3/uL (130-450); RED BLOOD COUNT 4.07 10^6/uL (4.20-5.40); RED CELL DISTRIBUTION WIDTH 13.1 % (12.0-15.0); WHITE BLOOD COUNT 9.3 x10^3/uL (4.8-10.8)
[2023-08-18 19:58] LABS: ALBUMIN 3.9 g/dL (3.2-5.5); ALBUMIN/GLOBULIN RATIO 1.7 (1.0-2.2); BILIRUBIN,TOTAL 0.3 mg/dL (0.2-1.0); CALCIUM 8.9 mg/dL (8.5-10.3); POTASSIUM 3.9 mmol/L (3.5-4.5); TOTAL PROTEIN 6.2 g/dL (6.4-8.9)
== END 2023-08-18 14:35 | disposition home or self-care (01) ==
LOC: LAB.N 14:34
PROVIDERS: ATTEND Physician Assistant Medical
DX: R10.84 Generalized abdominal pain (principal)
CPT/HCPCS: 36415; 80053; 83690; 85025

== ENCOUNTER 2024-01-08 08:51 | Outpatient (CLI) | payer MEDICARE ==
[2024-01-08 12:14] LABS: ESTIMATED AVERAGE GLUCOSE 148 mg/dL (70-100); HEMOGLOBIN A1c% 6.8 % (4.27-6.07)
[2024-01-08 12:27] LABS: CALCIUM 8.8 mg/dL (8.5-10.3); POTASSIUM 4.6 mmol/L (3.5-4.5)
== END 2024-01-08 08:52 | disposition home or self-care (01) ==
LOC: LAB.N 08:51
PROVIDERS: ATTEND Physician Assistant Medical
DX: E11.29 Type 2 diabetes mellitus with other diabetic kidney complication (principal)
CPT/HCPCS: 36415; 80048; 83036

== ENCOUNTER 2024-01-12 11:08 | Outpatient (CLI) | payer MEDICARE ==
--- NOTE | 2024-01-13 10:30 | Mammography Report ---
BILATERAL DIGITAL SCREENING MAMMOGRAM 3D/2D: 01/12/2024 CLINICAL: Routine screening. Family history of breast cancer. Comparison is made to exams dated: 05/15/2022 mammogram - [facility] [place] [facility], 12/18/2020 ultrasoun d, 12/18/2020 mammogram - [facility], 08/31/2018 mammogram - [facility], 05/13/2016 mammogram, and 09/28/2014 mammogram - [facility]. There are scattered areas of fibroglandular density in both breasts (category b / 25%-50% glandular t issue). There is a benign calcification in the left breast. There also are benign post operative findings in the left breast. No significant masses, calcifications, or other findings are seen in either breast. There has been no significant interval change. IMPRESSION: BENIGN There is no mammographic evidence of malignancy. A 1 year screening mammogram is recommended. Based on the Tyrer Cuzick model (a risk assessment model) the patient's lifetime risk is 8.8% and her 10 year risk is 0.0%. According to the ACR, ACS, and NCCN guidelines, an annual breast MRI exam anisha g with mammogram is recommended if the patient's lifetime risk is 20% or greater. This exam was interpreted at Station ID: [id number]. NOTE: For mammograms, a report in lay terms will be sent to the patient. Approximately 15% of breast malignancies will not be visualized mammographically. In the management of a palpable breast mass, a negative mammogram must not discourage biopsy of a clinically suspicious lesion. Electronically Signed By: Mohan [email or web address]:01/12/2024 17:38:19 ACR BI-RADS Category 2: Benign Finding(s) 3342F PARENCHYMAL PATTERN: (A) - The breast(s) demonstrate(s) scattered fibroglandular densities. BI-RADS CATEGORY: (2) - 2 RECOMMENDATION: (ANNUAL) - Recommend routine annual screening mammography. [id number] 1 year screening LATERALITY: (B)
== END 2024-01-12 11:09 | disposition home or self-care (01) ==
LOC: DI.N 11:08
DX: Z12.31 Encounter for screening mammogram for malignant neoplasm of breast (principal); Z80.3 Family history of malignant neoplasm of breast; R92.323 Mammographic fibroglandular density, bilateral breasts; R92.1 Mammographic calcification found on diagnostic imaging of breast

== ENCOUNTER 2024-04-08 09:25 | Outpatient (CLI) | payer MEDICARE ==
[2024-04-08 12:35] LABS: POTASSIUM 4.5 mmol/L (3.5-4.5)
[2024-04-08 12:38] LABS: ESTIMATED AVERAGE GLUCOSE 160 mg/dL (70-100); HEMOGLOBIN A1c% 7.2 % (4.27-6.07)
== END 2024-04-08 09:26 | disposition home or self-care (01) ==
LOC: LAB.N 09:25
PROVIDERS: ATTEND Physician Assistant Medical
DX: E11.29 Type 2 diabetes mellitus with other diabetic kidney complication (principal)
CPT/HCPCS: 36415; 80048; 83036